=== PATIENT | female | born 1975 | race Two or more races ===

== ENCOUNTER 2017-03-02 19:13 | Emergency (ER) | payer SELFPAY ==
[2017-03-02] MEDS ORDERED: LIDOCAINE 5% (700 MG) TRANSDERMAL ADH..PATCH TP ONE (19:57)
--- NOTE | 2017-03-02 19:59 | ER Document Report ---
HPI - HPI Pain Level: 4 Notes: Patient is a 42-year-old female with no significant past medical history who presents the ED complaining of right shoulder pain 1 day without any known injury. Patient states that she is still able to use her arm and her shoulder, but does have discomfort in the anterior shoulder. Patient states that on occasion the pain feels like it radiates down her back. Patient denies any IV drug use. She denies any previous history of the shoulder aside from bursitis. No other concerns or complaints. Denies any headache, fever, head injury, neck pain, URI, sore throat, chest pain, palpitations, syncope, cough, shortness of breath, wheeze, dyspnea, abdominal pain, nausea/vomiting/diarrhea, numbness/tingling, saddle anesthesia, muscle paralysis/weakness, or rash. - ROS Notes: REVIEW OF SYSTEMS: CONSTITUTIONAL : Denies fever, chills, or sweats. Denies recent illness. EENT: Denies eye, ear, throat, or mouth pain or symptoms. Denies nasal or sinus congestion or discharge. Denies throat, tongue, or mouth swelling or difficulty swallowing. CARDIOVASCULAR: Denies chest pain. Denies palpitations or racing or irregular heart beat. RESPIRATORY: Denies cough, cold, or chest congestion. Denies shortness of breath, difficulty breathing, or wheezing. GASTROINTESTINAL: Denies abdominal pain or distention. Denies nausea, vomiting , or diarrhea. Denies blood in vomitus, stools, or per rectum. Denies black, tarry stools. Denies constipation. GENITOURINARY: Denies difficulty urinating, painful urination, burning, frequency, blood in urine, or discharge. MUSCULOSKELETAL: see hpi SKIN: Denies rash, lesions or sores. NEUROLOGICAL: Denies confusion or altered mental status. Denies passing out or loss of consciousness. Denies dizziness or lightheadedness. Denies headache. Denies weakness or paralysis or loss of use of either side. Denies problems with gait or speech. Denies sensory loss, numbness, or tingling. ALL OTHER SYSTEMS REVIEWED AND NEGATIVE. Dictation was performed using [employer] On[employer] recognition software - DERM Skin Color: Normal Past Medical History - Social History Smoking Status: Unknown if Ever Smoked Family History: Reviewed & Not Pertinent Patient has suicidal ideation: No Patient has homicidal ideation: No Renal/ Medical History: Denies: Hx Peritoneal Dialysis Vertical Provider Document - CONSTITUTIONAL Agree With Documented VS: Yes Notes: PHYSICAL EXAMINATION: GENERAL: Well-appearing, well-nourished and in no acute distress. A&Ox4 HEAD: Atraumatic, normocephalic. EYES: Pupils equal round and reactive to light, extraocular movements intact, sclera anicteric, conjunctiva are normal. ENT: EAC clear b/l. TM's intact b/l without erythema, fluid, or perforation. Nares patent and without discharge. oropharynx clear without exudates. No tonsilar hypertrophy or erythema. Moist mucous membranes. No sinus tenderness. NECK: Normal range of motion, supple without lymphadenopathy. No rigidity/ meningismus. No midline or paraspinal mm tenderness. LUNGS: Breath sounds clear to auscultation bilaterally and equal. No wheezes rales or rhonchi. HEART: Regular rate and rhythm without murmurs, rubs, gallops. Musculoskeletal: Rt shoulder: FROM to passive/active. Strength 5+/5. No RC deficit noted. + tenderness elicited with speed's test and palp to biceps tendon. No other shoulder tenderness or biceps tenderness. Field Agent strength intact. N/V intact distal. No erythema or warmth. Back: FROM. No step-offs, ecchymosis, abrasion, or deformity noted. Non- tender. Extremities: No cyanosis, clubbing, or edema b/l. Peripheral pulses 2+. Capillary refill less than 3 seconds. NEUROLOGICAL: Normal speech, normal gait. Normal sensory, motor exams PSYCH: Normal mood, normal affect. SKIN: Warm, Dry, normal turgor, no rashes or lesions noted. - INFECTION CONTROL TRAVEL OUTSIDE OF THE [place] IN LAST 30 DAYS: No - RESPIRATORY O2 Sat by Pulse Oximetry: 100 Course - Re-evaluation Re-evalutation: 03/02/17 20:09 Patient is an afebrile, well-hydrated, 42-year-old female who presents ED with right shoulder pain, I suspect possible biceps tendinitis based on H&P. Vitals are stable. PE is otherwise unremarkable for any neurovascular compromise, obvious tendon/ligament rupture, obvious fracture or dislocation. Patient had no bony tenderness on exam. No imaging warranted at this time based on H&P. I will send her home with a prescription for naproxen and a Lidoderm patch placed today. Conservative measures for symptoms otherwise. Recheck with your PCM this week. Consider consult with orthopedics and physical therapy for ongoing/ worsening symptoms. Return to the ED with any worsening/concerning symptoms otherwise as reviewed in discharge. Patient is in agreement. - Vital Signs Vital signs: Temp Pulse Resp BP Pulse Ox 98.1 F 89 16 150/96 H 100 03/02/17 19:14 03/02/17 19:14 03/02/17 19:14 03/02/17 19:14 03/02/17 19:14 Discharge - Discharge Clinical Impression: Biceps tendonitis Qualifiers: Laterality: right Qualified Code(s): M75.21 - Bicipital tendinitis, right shoulder Condition: Stable Disposition: HOME, SELF-CARE Instructions: Ice Packs ([facility]), Exercise Program for the Shoulder ([facility]), Tendonitis ([facility]), Warm Packs ([facility]) Additional Instructions: Rest, Ice, Compression, Elevation Tylenol/ibuprofen as needed Light stretches daily Strength exercises as able Moist heat and massage may help F/u with your PCP in 3-5 days for a recheck Consider consult(s) with Orthopedics/physical therapy for ongoing/worsening symptoms Return to the ED with any worsening symptoms and/or development of fever, headache, chest pain, palpitations, syncope, shortness of breath, trouble breathing, abdominal pain, n/v/d, muscle weakness/paralysis, numbness/tingling, swelling, redness, or other worsening symptoms that are concerning to you. Prescriptions: Naproxen 500 mg PO BID PRN #30 tablet PRN Reason: Forms: Elevated Blood Pressure Referrals: [facility] ([place]) [Provider Group] - Follow up as needed
[2017-03-02 21:32] VITALS: BP 157/93
== END 2017-03-02 21:16 | disposition home or self-care (01) ==
LOC: ER 19:13
DX: M75.21 Bicipital tendinitis, right shoulder (principal); M25.511 Pain in right shoulder
CPT/HCPCS: 99283

== ENCOUNTER 2017-04-05 13:03 | Observation (INO) | payer SELFPAY ==
[2017-04-05] MEDS ORDERED: ASPIRIN 325 MG TABLET PO ONE (13:30)
--- NOTE | 2017-04-05 13:32 | ER Document Report ---
ED Medical Screen (RME) - General Chief Complaint: Chest Pain > 30 Stated Complaint: CHEST PAIN LEFT ARM PAIN Time Seen by Provider: 04/05/17 13:30 Mode of Arrival: Ambulatory Information source: Patient TRAVEL OUTSIDE OF THE [place] IN LAST 30 DAYS: No - HPI Patient complains to provider of: cp Onset: This morning - pt started with SSCP approx 2-3 hours ago -- has GERD but this felt different than her usual GERD pain. Has not taken ASA today - Related Data Allergies/Adverse Reactions: No Known Allergies Allergy (Verified 04/05/17 13:08) Past Medical History Renal/ Medical History: Denies: Hx Peritoneal Dialysis Physical Exam - Vital signs Vitals: Temp Pulse Resp BP Pulse Ox 98.4 F 86 16 148/91 H 100 04/05/17 13:22 04/05/17 13:22 04/05/17 13:22 04/05/17 13:22 04/05/17 13:22 Course - Vital Signs Vital signs: Temp Pulse Resp BP Pulse Ox 98.4 F 86 16 148/91 H 100 04/05/17 13:22 04/05/17 13:22 04/05/17 13:22 04/05/17 13:22 04/05/17 13:22
[2017-04-05 14:21] LABS: ABSOLUTE BASOPHILS # (AUTO) 0.1 10^3/uL (0.0-0.2); ABSOLUTE EOSINOPHILS # (AUTO) 0.2 10^3/uL (0.0-0.6); ABSOLUTE LYMPHOCYTES (AUTO) 2.4 10^3/uL (0.5-4.7); ABSOLUTE MONOCYTES (AUTO) 1.3 10^3/uL (0.1-1.4); ABSOLUTE NEUT (AUTO) 7.8 10^3/uL (1.7-8.2); BASOPHILS % (AUTO) 0.5 % (0-2); EOSINOPHILS % (AUTO) 1.8 % (0-6); HEMOGLOBIN 11.5 g/dL (12.0-15.5); HGB HCT DIFFERENCE -1.5; LYMPHOCYTES % (AUTO) 20.6 % (13-45); MEAN CORPUSCULAR HEMOGLOBIN 24.4 pg (27.0-33.4); MEAN CORPUSCULAR HGB CONC 31.8 g/dL (32.0-36.0); MEAN CORPUSCULAR VOLUME 77 fl (80-97); RED BLOOD COUNT 4.69 10^6/uL (3.72-5.28); SEGMENTED NEUTROPHILS % (AUTO) 66.1 % (42-78); WHITE BLOOD COUNT 11.8 10^3/uL (4.0-10.5)
--- NOTE | 2017-04-05 14:33 | RADIOLOGY REPORT (SQ) ---
EXAM DESCRIPTION: CHEST PA/LAT COMPLETED DATE/TIME: 04/05/2017 2:25 pm REASON FOR STUDY: cp COMPARISON: None. EXAM PARAMETERS: NUMBER OF VIEWS: two views TECHNIQUE: Digital Frontal and Lateral radiographic views of the chest acquired. RADIATION DOSE: NA LIMITATIONS: none FINDINGS: LUNGS AND PLEURA: No opacities, masses or pneumothorax. No pleural effusion. MEDIASTINUM AND HILAR STRUCTURES: No masses or contour abnormalities. HEART AND VASCULAR STRUCTURES: Heart normal size. No evidence for failure. BONES: No acute findings. HARDWARE: Clips right upper quadrant post cholecystectomy. OTHER: No other significant finding. IMPRESSION: NO SIGNIFICANT RADIOGRAPHIC FINDING IN THE CHEST. TECHNICAL DOCUMENTATION: JOB ID: [id number] [employer]- All Rights Reserved
[2017-04-05 14:43] LABS: ALANINE AMINOTRANSFERASE 31 U/L (9-52); ALBUMIN 4.3 g/dL (3.5-5.0); ALKALINE PHOSPHATASE 117 U/L (38-126); ANION GAP 12 (5-19); ASPARTATE AMINO TRANSFERASE 19 U/L (14-36); BILIRUBIN,DIRECT 0.3 mg/dL (0.0-0.4); BILIRUBIN,TOTAL 0.3 mg/dL (0.2-1.3); BLOOD UREA NITROGEN 10 mg/dL (7-20); CALCIUM 9.4 mg/dL (8.4-10.2); CARBON DIOXIDE 27 mmol/L (22-30); CHLORIDE 102 mmol/L (98-107); CREATINE KINASE 135 U/L (30-135); CREATININE RESULT 0.88 mg/dL (0.52-1.25); GLUCOSE 78 mg/dL (75-110); POTASSIUM 4.3 mmol/L (3.6-5.0); SODIUM 140.5 mmol/L (137-145); TOTAL PROTEIN 7.7 g/dL (6.3-8.2)
[2017-04-05] MEDS ORDERED: NITROGLYCERIN 0.4 MG/TAB 25 TAB/BOTTLE SL PRN ×2 (14:54→20:43)
[2017-04-05 15:01] LABS: CREATINE KINASE MB 0.22 ng/mL (<4.55)
[2017-04-05 15:03] LABS: TROPONIN I < 0.012 ng/mL
--- NOTE | 2017-04-05 15:03 | ER Document Report ---
ED Cardiac - General Chief Complaint: Chest Pain > 30 Stated Complaint: CHEST PAIN LEFT ARM PAIN Time Seen by Provider: 04/05/17 14:10 Mode of Arrival: Ambulatory Information source: Patient, Relative - Patient's daughter is also in the room and helping give historical account TRAVEL OUTSIDE OF THE [place] IN LAST 30 DAYS: No - HPI Cardiac risk factors: Hypertension, + Family history - htn Exacerbated by: Denies Relieved by: Nothing Similar symptoms previously: No Recently seen / treated by doctor: No Notes: Is a 42-year-old -Al[place] female who presents the emergency department complaint of chest pain. She states the chest pain is pressure-like like someone sitting on her chest. She states it started this morning at 10 AM while sitting. She states that it radiates to her left back area. There is no aggravating or alleviating factors. She states she does have history of GERD and she usually relieves the discomfort from GERD with seltzer. She states that this pain feels different as it is located on the left side and is a heaviness. Patient was also diagnosed with hypertension in the past however she is noncompliant with the medication. She admits to smoking cigars however she denies cigarettes. She does drink vodka average of 3 times a week. Patient states approximately 3 years ago she had her gallbladder removed in a year ago she had an appendectomy. She also states 3 years ago she was seen for chest pain and did have a stress test which was negative. Patient states that her mother has a history of hypertension as well as her father. Patient denies any associated symptoms with her chest pain including nausea vomiting shortness of breath. She has not been out of the country recently. - Related Data Allergies/Adverse Reactions: No Known Allergies Allergy (Verified 04/05/17 13:08) Home Medications: Current Home Medications No Home Medications 04/05/17 [History] Past Medical History - General Information source: Patient - Social History Smoking Status: Current Every Day Smoker Chew tobacco use (# tins/day): No Frequency of alcohol use: Occasional Drug Abuse: None Family History: Reviewed & Not Pertinent Patient has suicidal ideation: No Patient has homicidal ideation: No Renal/ Medical History: Denies: Hx Peritoneal Dialysis Review of Systems - Review of Systems Constitutional: denies: No symptoms reported, See HPI, Chills, Diaphoresis, Fever, Malaise, Weakness, Other, Weight gain, Weight loss, Recent illness EENT: denies: No symptoms reported, See HPI, Eye pain, Eye discharge, Blurred vision, Tearing, Double vision, Ear pain, Ear discharge, Nose pain, Nose congestion, Nose discharge, Sinus pressure, Sinus discharge, Throat pain, Difficulty swallowing, Throat swelling, Mouth pain, Mouth swelling, Dental problem, Vertigo, Other Cardiovascular: See HPI. denies: Palpitations, Heart racing Respiratory: denies: No symptoms reported, See HPI, Cough, Hurts to breathe, Hemoptysis, Short of breath, Sputum, Stridor, Wheezing, Other Gastrointestinal: Vomiting - once yesterday Genitourinary: No symptoms reported Female Genitourinary: No symptoms reported Musculoskeletal: No symptoms reported Skin: No symptoms reported Hematologic/Lymphatic: No symptoms reported Neurological/Psychological: No symptoms reported -: Yes All other systems reviewed and negative Physical Exam - Vital signs Vitals: Temp Pulse Resp BP Pulse Ox 98.4 F 86 16 148/91 H 100 04/05/17 13:22 04/05/17 13:22 04/05/17 13:22 04/05/17 13:22 04/05/17 13:22 Interpretation: Hypertensive - Notes Notes: PHYSICAL EXAMINATION: GENERAL: Well-appearing, well-nourished and in no acute distress. HEAD: Atraumatic, normocephalic. EYES: Pupils equal round and reactive to light, extraocular movements intact, conjunctiva are normal. ENT: Nares patent, oropharynx clear without exudates. Moist mucous membranes. NECK: Normal range of motion, supple without lymphadenopathy LUNGS: Breath sounds clear to auscultation bilaterally and equal. No wheezes rales or rhonchi. HEART: Regular rate and rhythm without murmurs ABDOMEN: Soft, nontender, nondistended abdomen. No guarding, no rebound. No masses appreciated. Female : deferred Musculoskeletal: Normal range of motion, no pitting or edema. No cyanosis. NEUROLOGICAL: Cranial nerves grossly intact. Normal speech, normal gait. Normal sensory, motor exams PSYCH: Normal mood, normal affect. SKIN: Warm, Dry, normal turgor, no rashes or lesions noted. Course - Re-evaluation Re-evalutation: 04/05/17 17:42 Did talk to the [employer] who just sent the troponin that I had ordered earlier. - Vital Signs Vital signs: Temp Pulse Resp BP Pulse Ox 98.4 F 86 20 152/95 H 96 04/05/17 13:22 04/05/17 13:22 04/05/17 20:15 04/05/17 20:15 04/05/17 20:15 - Laboratory Result Diagrams: 04/05/17 13:40 04/05/17 13:40 Laboratory results interpreted by me: 04/05/17 13:40 WBC 11.8 H Hgb 11.5 L MCV 77 L MCH 24.4 L MCHC 31.8 L RDW 19.0 H - EKG Interpretation by Me EKG shows normal: Sinus rhythm Rate: Normal - 89 bpm Voltage: Consistant with LVH Additional EKG results interpreted by me: 04/05/17 17:43 EKG done 04/05/2017 at 1736 reveals normal sinus rhythm normal axis no acute ST elevation or depression. No acute abnormalities. No change when compared to previous EKG - Transfer of Care Notes: 04/05/17 18:56 Speak with the patient and her daughter. I reviewed the labs as well as both EKGs with them. We will placed in observation for further evaluation of her chest pain as well as blood pressure control. I did discuss with the patient that I feel that she needs to be placed in observation this time. She did state that she does not have insurance. I did tell her she could do this as an outpatient workup however she stated that she would feel more comfortable staying in the hospital and getting worked up sooner than later. Patient does not have a primary medical doctor she does not have a fire eater. Discharge - Discharge Clinical Impression: Chest pain in adult, Uncontrolled hypertension Condition: Stable Disposition: ADMITTED OBSERVATION Admitting Provider: Hospitalist - Dr. Bonilla Unit Admitted: Telemetry - [place]
[2017-04-05 20:40] LABS: URINE BARBITURATES SCREEN NEGATIVE; URINE METHADONE SCREEN NEGATIVE; URINE OPIATES LOW NEGATIVE; URINE PHENCYCLIDINE SCREEN NEGATIVE
[2017-04-05] MEDS ORDERED: LANSOPRAZOLE 15 MG TAB.RAP.DR PO ONE (20:43)
[2017-04-05] MEDS ORDERED: ONDANSETRON HCL INJ/PF 4 MG/2 ML SDV IV PRN (20:43)
[2017-04-05] MEDS ORDERED: MAG HYDROX/AL HYDROX/SIMETH SUSP 30 ML UDCUP PO ONE (20:52)
[2017-04-05] MEDS ORDERED: LIDOCAINE 2% VISCOUS SOLN 20 ML UDCUP PO ONE (20:52)
[2017-04-05] MEDS ORDERED: METOCLOPRAMIDE HCL ORAL SOLN 10 MG/10 ML UDCUP PO ONE (20:52)
--- NOTE | 2017-04-05 22:20 | PDOC H&P ---
History of Present Illness Admission Date/PCP: 04/05/17 20:36 no pcp History of Present Illness: KEVIN DAVIS is a 42 year old female with a PMH of HTN not currently on any medications who presents with complaints of chest pain. Patient reports that she began having chest pain at approximately 10 AM. She was sitting. She denies any exacerbating or alleviating factors. She reports that it radiated through to her back and into her left arm. She denied any diaphoresis, nausea, or vomiting. She did admit some shortness of breath and reported an odd smell at the time. She denies any cough or acute URI type illness. She is referred to the hospital service for evaluation of her chest pressure. Past Medical History Cardiac Medical History: Reports: Hypertension GI Medical History: Reports: Gastroesophageal Reflux Disease Past Surgical History Past Surgical History: Reports: Appendectomy, Cholecystectomy, Tubal Ligation Social History Smoking Status: Current Every Day Smoker Frequency of Alcohol Use: Social Hx Recreational Drug Use: No Hx Prescription Drug Abuse: No - Advance Directive Resuscitation Status: Full Code Surrogate healthcare decision maker:: Courtney Quintanilla, daughter Family History Family History: DM, Hypertension Parental Family History Reviewed: Yes Children Family History Reviewed: Yes Sibling(s) Family History Reviewed.: Yes Medication/Allergy Home Medications: No Home Medications 04/05/17 Allergies/Adverse Reactions: No Known Allergies Allergy (Verified 04/05/17 13:08) Review of Systems Constitutional: ABSENT: chills, fever(s), headache(s), weight gain, weight loss Eyes: ABSENT: visual disturbances Ears: ABSENT: hearing changes Cardiovascular: PRESENT: as per HPI, chest pain. ABSENT: dyspnea on exertion, edema, orthropnea, palpitations Respiratory: ABSENT: cough, dyspnea, hemoptysis, sputum Gastrointestinal: PRESENT: heartburn. ABSENT: abdominal pain, constipation, diarrhea, hematemesis, hematochezia, melena, nausea, vomiting Genitourinary: ABSENT: dysuria, hematuria Musculoskeletal: ABSENT: joint swelling Integumentary: ABSENT: rash, wounds Neurological: ABSENT: abnormal gait, abnormal speech, confusion, dizziness, focal weakness, syncope Psychiatric: ABSENT: anxiety, depression, homidical ideation, suicidal ideation Endocrine: ABSENT: cold intolerance, heat intolerance, polydipsia, polyuria Hematologic/Lymphatic: ABSENT: easy bleeding, easy bruising Physical Exam Vital Signs: Temp Pulse Resp BP Pulse Ox 98 F 86 20 150/99 H 100 04/05/17 21:38 04/05/17 21:38 04/05/17 21:38 04/05/17 21:38 04/05/17 21:38 General appearance: PRESENT: no acute distress, well-developed, well-nourished Head exam: PRESENT: atraumatic, normocephalic Eye exam: PRESENT: conjunctiva pink, EOMI, PERRLA. ABSENT: scleral icterus Ear exam: PRESENT: normal external ear exam Mouth exam: PRESENT: moist, tongue midline Neck exam: ABSENT: carotid bruit, JVD, lymphadenopathy, thyromegaly Respiratory exam: PRESENT: clear to auscultation jessica. ABSENT: rales, rhonchi, wheezes Cardiovascular exam: PRESENT: RRR. ABSENT: diastolic murmur, rubs, systolic murmur Pulses: PRESENT: normal dorsalis pedis pul Vascular exam: PRESENT: normal capillary refill GI/Abdominal exam: PRESENT: normal bowel sounds, soft. ABSENT: distended, guarding, mass, organolmegaly, rebound, tenderness Rectal exam: PRESENT: deferred Extremities exam: PRESENT: full ROM. ABSENT: calf tenderness, clubbing, pedal edema Neurological exam: PRESENT: alert, awake, oriented to person, oriented to place , oriented to time, oriented to situation, CN II-XII grossly intact. ABSENT: motor sensory deficit Psychiatric exam: PRESENT: appropriate affect, normal mood. ABSENT: homicidal ideation, suicidal ideation Skin exam: PRESENT: dry, intact, warm. ABSENT: cyanosis, rash Results Laboratory Results: 04/05/17 04/05/17 04/05/17 13:40 13:40 13:40 WBC 11.8 H Hgb 11.5 L Seg Neutrophils % 66.1 Creatinine 0.88 Troponin I < 0.012 Urine HCG, Qual Urine Opiates Screen Urine Cocaine Screen 04/05/17 04/05/17 04/05/17 16:26 16:26 17:30 WBC Hgb Seg Neutrophils % Creatinine Troponin I < 0.012 Urine HCG, Qual NEGATIVE Urine Opiates Screen NEGATIVE Urine Cocaine Screen NEGATIVE Impressions: Chest X-Ray 04/05/17 13:30 IMPRESSION: NO SIGNIFICANT RADIOGRAPHIC FINDING IN THE CHEST. Status: Imported from PACS Assessment & Plan - Diagnosis (1) Chest pain in adult Is this a current diagnosis for this admission?: Yes Plan: Place patient on telemetry observation. Monitor for arrhythmia or ST segment changes. Initiate patient on cozaar, Lipitor, oxygen, nitroglycerin, and aspirin. Serial cardiac enzymes every 6 hours. Testing lipid panel in the morning. Will obtain stress test tomorrow due to patient's risk factors and concerning history of chest pain. (2) Uncontrolled hypertension Is this a current diagnosis for this admission?: Yes Plan: Start patient on [id number] (3) Tobacco use disorder, mild, abuse Is this a current diagnosis for this admission?: Yes Plan: Patient is advised to stop using tobacco. Counseling lasted longer than 3 minutes. 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
[2017-04-05 22:47] LABS: CREATINE KINASE MB < 0.22 ng/mL (<4.55); TROPONIN I < 0.012 ng/mL
[2017-04-05] MEDS: METOPROLOL TARTRATE PF/INJ 5 MG/5 ML SDV IV PRN ×5 (23:31→23:50)
[2017-04-05] MEDS: LOSARTAN POTASSIUM 25 MG TABLET PO SCH (23:39)
[2017-04-05] MEDS: ATORVASTATIN CALCIUM 40 MG TABLET PO SCH (23:39)
[2017-04-05] MEDS ORDERED: METOPROLOL TARTRATE PF/INJ 5 MG/5 ML SDV IV PRN (23:49)
[2017-04-06] MEDS ORDERED: INFLUENZA ADLT QUAD (36MOS+) 2017-18 VAC 0.5 ML SYR IM PRN (00:45)
[2017-04-06 04:17] LABS: CHOLESTEROL 155.74 mg/dL (0-200); Direct HDL 51 mg/dL (>40); TRIGLYCERIDES 95 mg/dL (<150)
[2017-04-06 04:27] LABS: DIRECT LDL 83 mg/dL (<100)
[2017-04-06 04:33] LABS: CREATINE KINASE MB < 0.22 ng/mL (<4.55); TROPONIN I < 0.012 ng/mL
[2017-04-06] MEDS: LANSOPRAZOLE 30 MG TAB.RAP.DR PO SCH (05:27)
--- NOTE | 2017-04-06 09:54 | EKG REPORT ---
SEVERITY:- ABNORMAL ECG - SINUS RHYTHM CONSIDER LEFT VENTRICULAR HYPERTROPHY : Confirmed by: Juan Willis MD 06-Apr-2017 09:54:01
--- NOTE | 2017-04-06 09:54 | EKG REPORT ---
SEVERITY:- NORMAL ECG - SINUS RHYTHM : Confirmed by: Juan Willis MD 06-Apr-2017 09:53:49
[2017-04-06 10:15] LABS: CREATINE KINASE MB < 0.22 ng/mL (<4.55); TROPONIN I < 0.012 ng/mL
[2017-04-06] MEDS: ASPIRIN 325 MG TABLET, ENT COATED PO SCH (10:27)
[2017-04-06] MEDS: LOSARTAN POTASSIUM 25 MG TABLET PO SCH ×2 (10:27→22:29)
--- NOTE | 2017-04-06 18:30 | PDOC PROGRESS REPORT ---
Subjective Progress Note for:: 04/06/17 Subjective:: Patient denies any further chest pain. Troponins have been negative so far. She has been noncompliant with a blood pressure medication in the past and she has a family history of coronary artery disease. And she is a smoker. Patient states her chest pain was relieved in the ER with nitroglycerin. She denies any radiating nausea vomiting diaphoresis she denies any recent cough or congestion. Her past medical history includes hypertension, GERD, tubal ligation appendectomy cholecystectomy current smoker and some alcohol. Denies any illicit drug use. Reason For Visit: CHEST PAIN Physical Exam Vital Signs: Temp Pulse Resp BP Pulse Ox 98.6 F 81 18 133/81 H 100 04/06/17 12:01 04/06/17 14:00 04/06/17 12:01 04/06/17 12:01 04/06/17 12:01 Intake & Output 04/05/17 04/06/17 04/07/17 06:59 06:59 06:59 Intake Total 240 Output Total 300 Balance -60 Weight 70.7 kg General appearance: PRESENT: no acute distress, well-developed, well-nourished Head exam: PRESENT: atraumatic, normocephalic Eye exam: PRESENT: conjunctiva pink, EOMI, PERRLA. ABSENT: scleral icterus Ear exam: PRESENT: normal external ear exam Mouth exam: PRESENT: moist, tongue midline Neck exam: ABSENT: carotid bruit, JVD, lymphadenopathy, thyromegaly Respiratory exam: PRESENT: clear to auscultation jessica. ABSENT: rales, rhonchi, wheezes Cardiovascular exam: PRESENT: RRR. ABSENT: diastolic murmur, rubs, systolic murmur Pulses: PRESENT: normal dorsalis pedis pul Vascular exam: PRESENT: normal capillary refill GI/Abdominal exam: PRESENT: normal bowel sounds, soft. ABSENT: distended, guarding, mass, organolmegaly, rebound, tenderness Rectal exam: PRESENT: deferred Extremities exam: PRESENT: full ROM. ABSENT: calf tenderness, clubbing, pedal edema Neurological exam: PRESENT: alert, awake, oriented to person, oriented to place , oriented to time, oriented to situation, CN II-XII grossly intact. ABSENT: motor sensory deficit Psychiatric exam: PRESENT: appropriate affect, normal mood. ABSENT: homicidal ideation, suicidal ideation Skin exam: PRESENT: dry, intact, warm. ABSENT: cyanosis, rash Results Laboratory Results: 04/06/17 03:54 Triglycerides 95 Cholesterol 155.74 LDL Cholesterol Direct 83 VLDL Cholesterol 19.0 HDL Cholesterol 51 04/05/17 04/06/17 04/06/17 21:15 03:54 09:19 CK-MB (CK-2) < 0.22 < 0.22 < 0.22 Troponin I < 0.012 < 0.012 < 0.012 Impressions: Chest X-Ray 04/05/17 13:30 IMPRESSION: NO SIGNIFICANT RADIOGRAPHIC FINDING IN THE CHEST. Assessment & Plan - Diagnosis (1) Chest pain in adult Is this a current diagnosis for this admission?: Yes Plan: Patient was put in for a treadmill stress test for tomorrow. Troponins have been negative will consult Dr. Mcgowan if needed. Patient is on telemetry, we will initiate Cozaar, Lipitor, oxygen, nitroglycerin and aspirin. Lipid panel in the morning appeared normal. She does have some risk factors for coronary artery disease (2) Tobacco use disorder, mild, abuse Is this a current diagnosis for this admission?: Yes Plan: Patient was offered smoking cessation and she said she will is to quit. Patient denies smoking cigarettes she does smoke cigars (3) Uncontrolled hypertension Is this a current diagnosis for this admission?: Yes Plan: Patient was started on Cozaar continue to monitor frequent vital signs (4) GERD (gastroesophageal reflux disease) Qualifiers: Esophagitis presence: esophagitis presence not specified Qualified Code(s) : K21.9 - Gastro-esophageal reflux disease without esophagitis Is this a current diagnosis for this admission?: Yes Plan: Patient was placed on Protonix plan to continue that outpatient. She currently takes seltzer water for her GERD fairly frequently which this could be etiology of some of her chest discomfort - Plan Summary Plan Summary: Due to patient's risk factors despite negative cardiac enzymes will keep patient overnight and obtain a treadmill stress test in the morning due to her risk factors and concerning history of chest pain
[2017-04-06] MEDS: ATORVASTATIN CALCIUM 40 MG TABLET PO SCH (22:29)
[2017-04-07] MEDS: LANSOPRAZOLE 30 MG TAB.RAP.DR PO SCH (05:49)
[2017-04-07] MEDS: LOSARTAN POTASSIUM 25 MG TABLET PO SCH (12:07)
[2017-04-07] MEDS: ASPIRIN 325 MG TABLET, ENT COATED PO SCH (12:08)
[2017-04-07 16:30] VITALS: BP 132/74
--- NOTE | 2017-04-07 16:43 | PDOC DISCHARGE SUMMARY ---
General - Admit/Disc Date/PCP Admission Date/Primary Care Provider: 04/05/17 20:36 Discharge Date: 04/07/17 - Discharge Diagnosis (1) Chest pain in adult Summary: Patient denies any further chest pain. She was admitted late on Friday. Stress test was ordered for early this morning. Troponins were negative, vital signs blood pressure was stable, heart rate stable on telemetry no EKG changes. No further chest pain during her admission suspect this was due to GERD. Normal stress test so patient is able to be discharged home follow-up with oncology 2-4 weeks or as needed (2) Tobacco use disorder, mild, abuse Is this a current diagnosis for this admission?: Yes Summary: Encourage tobacco cessation recommend patient get [id number] nicotine patches offered to write a prescription she does not have any insurance (3) Uncontrolled hypertension Is this a current diagnosis for this admission?: Yes (4) GERD (gastroesophageal reflux disease) Is this a current diagnosis for this admission?: Yes Summary: Encourage patient to take Prilosec OTC or Pepcid or Zantac as needed - Additional Information Resuscitation Status: Full Code Discharge Diet: Cardiac Discharge Activity: Activity As Tolerated Home Medications: Aspirin [Ecotrin 325 mg EC Tablet] 325 mg PO DAILY tabec 04/07/17 Atorvastatin Calcium [Lipitor 40 mg Tablet] 40 mg PO QHS tablet 04/07/17 Lansoprazole [Prevacid 30 mg Odt Tablet] 30 mg PO Q6AM tab. 04/07/17 Losartan Potassium [Cozaar 25 mg Tablet] 25 mg PO Q12 tablet 04/07/17 History of Present Illness History of Present Illness: KEVIN DAVIS is a 42 year old female Hospital Course Hospital Course: 42-year-old female came in past medical history uncontrolled hypertension currently not on any medications due to financial reasons. Patient had acute sharp chest pain radiating down her back into her left arm. No diaphoresis nausea vomiting. No further chest pain was noted and observed during our hospitalization. EKG no EKG changes negative troponins and patient had a negative stress test by Dr. De lCastillo recommend following up with him outpatient 2-4 weeks patient is hemodynamically stable to return home. Physical Exam Vital Signs: Temp Pulse Resp BP Pulse Ox 98.4 F 96 16 132/74 H 100 04/07/17 16:00 04/07/17 16:00 04/07/17 16:00 04/07/17 16:00 04/07/17 16:00 Intake & Output 04/06/17 04/07/17 04/08/17 06:59 06:59 06:59 Intake Total 240 1883 Output Total 300 Balance -60 1883 Weight 70.7 kg 70.7 kg General appearance: PRESENT: no acute distress, well-developed, well-nourished Head exam: PRESENT: atraumatic, normocephalic Eye exam: PRESENT: conjunctiva pink, EOMI, PERRLA. ABSENT: scleral icterus Ear exam: PRESENT: normal external ear exam Mouth exam: PRESENT: moist, tongue midline Neck exam: ABSENT: carotid bruit, JVD, lymphadenopathy, thyromegaly Respiratory exam: PRESENT: clear to auscultation jessica. ABSENT: rales, rhonchi, wheezes Cardiovascular exam: PRESENT: RRR. ABSENT: diastolic murmur, rubs, systolic murmur Pulses: PRESENT: normal dorsalis pedis pul Vascular exam: PRESENT: normal capillary refill GI/Abdominal exam: PRESENT: normal bowel sounds, soft. ABSENT: distended, guarding, mass, organolmegaly, rebound, tenderness Rectal exam: PRESENT: deferred Extremities exam: PRESENT: full ROM. ABSENT: calf tenderness, clubbing, pedal edema Neurological exam: PRESENT: alert, awake, oriented to person, oriented to place , oriented to time, oriented to situation, CN II-XII grossly intact. ABSENT: motor sensory deficit Psychiatric exam: PRESENT: appropriate affect, normal mood. ABSENT: homicidal ideation, suicidal ideation Skin exam: PRESENT: dry, intact, warm. ABSENT: cyanosis, rash Results Laboratory Results: 04/05/17 04/06/17 04/06/17 21:15 03:54 09:19 CK-MB (CK-2) < 0.22 < 0.22 < 0.22 Troponin I < 0.012 < 0.012 < 0.012 Impressions: Chest X-Ray 04/05/17 13:30 IMPRESSION: NO SIGNIFICANT RADIOGRAPHIC FINDING IN THE CHEST. Plan Discharge Plan: Discharge home Time Spent: Less than 30 Minutes
--- NOTE | 2017-04-12 15:54 | DRAGON STRESS TEST REPORT ---
Exercise EKG treadmill Cardiolite stress test using SPECT. Data procedure: 04/07/2017. Ordering Physician: Dr. Prince. Patient Status: In Patient Indication:: Chest pain. Coronary risk factors:. Age, hypertension, and hypercholesterolemia. Significant physical findings prior to stress testing show a blood pressure of 124/8493, and a heart rate of 93 beats per minute. Auscultation of the heart shows normal S1 and S2. No S3 or S4 gallops. Systolic murmur in the left sternal border and apex. Lungs are clear to auscultation and percussion. Resting 12-lead EKG:. Procedure: The patient was excised on a standard Trip protocol. . The patient walked a total of 7 minutes and 06 seconds on this protocol and reached a peak heart rate of 169 beats per minute, which is 96% of maximum predicted heart rate for age. This is at a workload of 10.10 METS. The test was stopped because of achievement of target heart rate. The patient described no symptoms of chest pain/discomfort. Exercise EKG's show: There is no EKG evidence of exercise-induced myocardial ischemia Arrhythmias seen: There were isolated PVCs, and the patient complained of fluttering, but no hemodynamic changes. The blood pressure response was was normal at peak exercise the blood pressure was 179/76 millimeters of Hg. The double product was K. Summary of findings and interpretation: 1. No chest pain or chest discomfort symptoms reproduced. 2. No] EKG evidence of ischemia in the form of ST segment depression. 3. Normal blood pressure response. 4. No significant arrhythmias seen. There were isolated PVCs, and the patient complained of fluttering, but there is no hemodynamic compromise. 5. Good exercise tolerance, good aerobic capacity. Diagnostic treadmill stress test negative for ischemia by EKG criteria. Recommendations: Correlate with nuclear Cardiolite images. Nuclear data: At rest the patient was given 10.8 millicuries of technetium 99 sestamibi, and as per protocol rest none gated SPECT images were obtained. The patient was exercised on a treadmill [see exercise physiology]. One minute prior to termination of exercise, 31.5 millicuries of technetium and there sestamibi was injected intravenously. As per protocol stress gated images were obtained. Impression: Review of images show that all segments of the myocardium had normal perfusion at rest, and normal perfusion post exercise. All segments of the myocardium had normal motion, contraction, and thickening by gated study. T. I D. ratio was normal at 0.69. The computer read rest and stress left ventricular ejection fractions were 63 %, and 68 % respectively. Conclusions: 1. No clinical symptoms of exercise-induced myocardial ischemia at a peak heart rate of 169 beats per minute, patient having achieved 96 % of maximum predicted heart rate for age, at a workload of 10.10 METS. 2. No EKG evidence of exercise-induced myocardial ischemia. 3. No significant arrhythmias seen. 4.No scintigraphic evidence of exercise-induced myocardial ischemia. 5. No scintigraphic evidence of myocardial infarction/scar. Recommendations Aggressive coronary risk factor modificnd treatment of underlying comorbidities. MTDD
== END 2017-04-07 18:15 | disposition home or self-care (01) ==
LOC: ER 13:03 → EH 20:36 → 4N 22:54
PROVIDERS: ADMIT Family Medicine; ATTEND Family Medicine
PROC: HZ31ZZZ Individual Counseling for Substance Abuse Treatment, Behavioral (ICD-10-PCS; principal; 2017-04-05)
DX: R07.9 Chest pain, unspecified (principal); I10 Essential (primary) hypertension; K21.9 Gastro-esophageal reflux disease without esophagitis; Z79.82 Long term (current) use of aspirin; Z91.14 Patient's other noncompliance with medication regimen; F17.290 Nicotine dependence, other tobacco product, uncomplicated; Z59.9 Problem related to housing and economic circumstances, unspecified; Z90.49 Acquired absence of other specified parts of digestive tract; Z82.49 Family history of ischemic heart disease and other diseases of the circulatory system
CPT/HCPCS: 93005; 99285; 36415 ×2; 82553 ×2; 82550; 85025; 81025; 80053; 84484 ×2; 80307; 80061; 93017; 71020; 78452; 93010; 99406; A9500; J3490 ×4; Q9969

== ENCOUNTER 2017-08-19 08:11 | Emergency (ER) | payer SELFPAY ==
[2017-08-19 08:46] LABS: APPEARANCE,URINE CLEAR; BILIRUBIN,URINE NEGATIVE (NEGATIVE); COLOR,URINE STRAW; GLUCOSE, URINE NEGATIVE (NEGATIVE); KETONES,URINE NEGATIVE (NEGATIVE); LEUKOCYTE ESTERASE,URINE NEGATIVE (NEGATIVE); NITRITE,URINE NEGATIVE (NEGATIVE); PROTEIN,URINE NEGATIVE (NEGATIVE); URINE SPECIFIC GRAVITY 1.003; UROBILINOGEN,URINE NEGATIVE mg/dL (<2.0)
[2017-08-19] MEDS ORDERED: MAG HYDROX/AL HYDROX/SIMETH SUSP 30 ML UDCUP PO ONE (09:22)
[2017-08-19] MEDS ORDERED: DIPHENHYDRAMINE HCL 25 MG/10 ML UDC PO ONE (09:22)
[2017-08-19] MEDS ORDERED: LIDOCAINE 2% VISCOUS SOLN 20 ML UDCUP PO ONE (09:22)
[2017-08-19 09:24] LABS: ALANINE AMINOTRANSFERASE 25 U/L (9-52); ALBUMIN 4.5 g/dL (3.5-5.0); ALKALINE PHOSPHATASE 105 U/L (38-126); ANION GAP 12 (5-19); ASPARTATE AMINO TRANSFERASE 25 U/L (14-36); BILIRUBIN,DIRECT 0.3 mg/dL (0.0-0.4); BILIRUBIN,TOTAL 0.3 mg/dL (0.2-1.3); BLOOD UREA NITROGEN 8 mg/dL (7-20); CALCIUM 9.7 mg/dL (8.4-10.2); CARBON DIOXIDE 25 mmol/L (22-30); CHLORIDE 106 mmol/L (98-107); CREATINE KINASE 91 U/L (30-135); GLUCOSE 97 mg/dL (75-110); POTASSIUM 4.1 mmol/L (3.6-5.0); SODIUM 142.9 mmol/L (137-145); TOTAL PROTEIN 8.1 g/dL (6.3-8.2)
--- NOTE | 2017-08-19 09:25 | EKG REPORT ---
SEVERITY:- ABNORMAL ECG - SINUS RHYTHM CONSIDER LEFT VENTRICULAR HYPERTROPHY : Confirmed by: Percy Butcher 19-Aug-2017 09:24:34
[2017-08-19 09:35] LABS: CREATINE KINASE MB 0.24 ng/mL (<4.55)
[2017-08-19 09:36] LABS: TROPONIN I < 0.012 ng/mL
[2017-08-19 10:03] LABS: ABSOLUTE EOSINOPHILS # (AUTO) 0.2 10^3/uL (0.0-0.6); ABSOLUTE LYMPHOCYTES (AUTO) 1.8 10^3/uL (0.5-4.7); ABSOLUTE MONOCYTES (AUTO) 0.7 10^3/uL (0.1-1.4); ABSOLUTE NEUT (AUTO) 9.4 10^3/uL (1.7-8.2); BASOPHILS % (AUTO) 0.3 % (0-2); EOSINOPHILS % (AUTO) 1.9 % (0-6); HEMOGLOBIN 11.8 g/dL (12.0-15.5); MEAN CORPUSCULAR HEMOGLOBIN 24.1 pg (27.0-33.4); MEAN CORPUSCULAR HGB CONC 31.1 g/dL (32.0-36.0); MEAN CORPUSCULAR VOLUME 78 fl (80-97); MONOCYTES % (AUTO) 5.8 % (3-13); PLATELET COUNT 406 10^3/uL (150-450); RED CELL DISTRIBUTION WIDTH 20.7 % (11.5-14.0); TOTAL CELLS COUNTED % (AUTO) 100 %; WHITE BLOOD COUNT 12.2 10^3/uL (4.0-10.5)
--- NOTE | 2017-08-19 10:45 | RADIOLOGY REPORT (SQ) ---
EXAM DESCRIPTION: CTA CHEST COMPLETED DATE/TIME: 08/19/2017 10:16 am REASON FOR STUDY: left sided cp, sob COMPARISON: None. TECHNIQUE: CT scan of the chest performed using helical scanning technique with dynamic intravenous contrast injection. Images reviewed with lung, soft tissue and bone windows. Reconstructed coronal and sagittal MPR images reviewed. Additional 3 dimensional post-processing performed to develop Maximal Intensity Projection images (HI P). All images stored on PACS. All CT scanners at this facility use dose modulation, iterative reconstruction, and/or weight based d osing when appropriate to reduce radiation dose to as low as reasonably achievable (ALARA). [facility]: Dose Right [facility]: CareDose [facility]: Dose Right [facility]: Teradose 4D [facility]: LightPole CONTRAST TYPE AND DOSE: contrast/concentration: Isovue 370.00 mg/ml; Total Contrast Delivered: 67.0 ml; Total Saline Delivered: 85.2 ml Contrast bolus optimized for the pulmonary arteries. Not diagnostic for the aorta. RENAL FUNCTION: Creatinine 0.62 RADIATION DOSE: CT Rad equipment meets quality standard of care and radiation dose reduction techniq ues were employed. CTDIvol: 14.3 - 16.5 mGy. DLP: 485 mGy-cm. . LIMITATIONS: None. FINDINGS: LUNGS AND PLEURA: No masses, infiltrates, pneumothorax. No pleural effusions, calcificati ons. Benign 3 mm nodule along the inferior aspect of the major fissure axial image 69 of doubtful cl inical significance AORTA AND GREAT VESSELS: No aneurysm. Contrast bolus not optimized for the aorta. HEART: No pericardial effusion. No significant coronary artery calcifications. PULMONARY ARTERIES: No emboli visualized in the main pulmonary arteries or the segmental branches. HILAR AND MEDIASTINAL STRUCTURES: No identified masses or abnormal nodes. HARDWARE: None in the chest. UPPER ABDOMEN: Post cholecystectomy THYROID AND OTHER SOFT TISSUES: No masses. No adenopathy. BONES: No acute or significant finding. 3D MIPS: Confirm above findings. OTHER: No other significant finding. IMPRESSION: NORMAL CTA OF THE CHEST. NO PULMONARY EMBOLI. COMMENT: Quality ID # [id number]: Final reports with documentation of one or more dose reduction techniques (e.g., Automated exposure control, adjustment of the mA and/or kV according to patient size, use of iterative reconstruction technique) TECHNICAL DOCUMENTATION: JOB ID: [id number]- All Rights Reserved Reading location - IP/workstation name: [email or web address]
[2017-08-19] MEDS ORDERED: ALBUTEROL SULFATE 0.083% NEB 2.5 MG/3 ML AMPUL NEB ONE (11:30)
--- NOTE | 2017-08-19 11:41 | ER Document Report ---
ED Cardiac - General Chief Complaint: Chest Pain Stated Complaint: ABDOMINAL PAIN Time Seen by Provider: 08/19/17 08:24 Mode of Arrival: Ambulatory Information source: Patient Notes: Patient is a 42-year-old female presents to the ER today for chest pain that began last night that she thought was acid reflux until this morning when it continued. Patient states the chest pain has been intermittent and is in the center of her chest, not radiating anywhere. She does state that it gives her shortness of breath with walking which is abnormal for her she does not have asthma or COPD, she does smoke 1 cigar a day. She was here in April 2017 for the same symptoms, was admitted, received a stress test that was normal. She does take Nexium daily. She denies any history of cardiac disease. She denies any history of blood clots, recent travel, control. TRAVEL OUTSIDE OF THE [place] IN LAST 30 DAYS: No - Related Data Allergies/Adverse Reactions: No Known Allergies Allergy (Verified 04/05/17 13:08) Home Medications: lisinopril. statin - pt unsure which. additional bp medications -- pt unsure which Past Medical History - General Information source: Patient - Social History Smoking Status: Current Every Day Smoker Frequency of alcohol use: Occasional Drug Abuse: None Family History: DM, Hypertension Patient has suicidal ideation: No Patient has homicidal ideation: No - Past Medical History Cardiac Medical History: Reports: Hx Hypercholesterolemia, Hx Hypertension Renal/ Medical History: Denies: Hx Peritoneal Dialysis GI Medical History: Reports: Hx Gastroesophageal Reflux Disease Past Surgical History: Reports: Hx Appendectomy, Hx Cholecystectomy, Hx Tubal Ligation Review of Systems - Review of Systems Constitutional: No symptoms reported EENT: No symptoms reported Cardiovascular: See HPI Respiratory: See HPI Gastrointestinal: No symptoms reported Genitourinary: No symptoms reported Female Genitourinary: No symptoms reported Musculoskeletal: No symptoms reported Skin: No symptoms reported Hematologic/Lymphatic: No symptoms reported Neurological/Psychological: No symptoms reported Physical Exam - Vital signs Vitals: Temp Pulse Resp BP Pulse Ox 97.7 F 90 18 165/94 H 98 08/19/17 08:16 08/19/17 08:16 08/19/17 08:16 08/19/17 08:16 08/19/17 08:16 - Notes Notes: PHYSICAL EXAMINATION: GENERAL: Well-appearing and in no acute distress. HEAD: Atraumatic, normocephalic. EYES: Pupils equal round and reactive to light, extraocular movements intact, sclera anicteric, conjunctiva are normal. ENT: ear canals without erythema or foreign body, TMs pearly lemus with good bony landmarks, nares patent, oropharynx clear without exudates. Moist mucous membranes. NECK: Normal range of motion, supple without lymphadenopathy LUNGS: CTAB and equal. No wheezes rales or rhonchi. HEART: Chest nontender to palpation, regular rate and rhythm without murmurs ABDOMEN: Soft, no tenderness. No guarding, no rebound BACK: no vertebral tenderness, normal ROM GI/: no CVA tenderness EXTREMITIES: Normal range of motion, no pitting edema. No cyanosis. NEUROLOGICAL: Cranial nerves grossly intact. Normal sensory/motor exams. PSYCH: Normal mood, normal affect. SKIN: Warm, Dry, normal turgor, no rashes or lesions noted Course - Re-evaluation Re-evalutation: 08/19/17 12:00 Cardiac enzymes are normal today EKG reveals normal sinus rhythm without evidence of ischemia or abnormality, CTA negative for any pulmonary emboli or abnormality. Patient is afebrile with normal vital signs, not requiring oxygen here in the emergency department. Lungs are clear to auscultation. Patient felt better after breathing treatment, I will send her home with an inhaler and something for her cough. I will also treat her for GERD as the GI cocktail completely relieved her chest pain. - Vital Signs Vital signs: Temp Pulse Resp BP Pulse Ox 97.7 F 90 26 H 148/97 H 100 08/19/17 08:16 08/19/17 08:16 08/19/17 10:01 08/19/17 10:01 08/19/17 10:01 - Laboratory Result Diagrams: 08/19/17 09:32 08/19/17 08:53 Laboratory results interpreted by me: 08/19/17 09:32 WBC 12.2 H Hgb 11.8 L MCV 78 L MCH 24.1 L MCHC 31.1 L RDW 20.7 H Absolute Neutrophils 9.4 H Discharge - Discharge Clinical Impression: Chest pain in adult, Cough GERD (gastroesophageal reflux disease) Qualifiers: Esophagitis presence: esophagitis presence not specified Qualified Code(s): K21.9 - Gastro-esophageal reflux disease without esophagitis Condition: Stable Disposition: HOME, SELF-CARE Additional Instructions: Return immediately for any new or worsening symptoms. Follow up with primary care provider, call tomorrow to make followup appointment. Prescriptions: Albuterol Sulfate [Ventolin Hfa] 1 - 2 puff IH Q4 PRN #1 hfa.aer.ad PRN Reason: Guaifenesin/D-Methorphan Hb [Robitussin-Dm Syrup 10 Ml Udcup] 10 ml PO Q4 PRN # 120 ml PRN Reason: Sucralfate [Carafate 1 gm Tablet] 1 gm PO ACHS #40 tablet Referrals: SHAKA PRUETT FNP [Primary Care Provider] - Follow up as needed
[2017-08-19 12:39] VITALS: BP 119/82
== END 2017-08-19 12:42 | disposition home or self-care (01) ==
LOC: ER 08:11
DX: K21.9 Gastro-esophageal reflux disease without esophagitis (principal); R07.9 Chest pain, unspecified; R05 Cough; R06.02 Shortness of breath; R10.9 Unspecified abdominal pain; F17.200 Nicotine dependence, unspecified, uncomplicated; I10 Essential (primary) hypertension
CPT/HCPCS: 93005; 94640; 99285; 36415; 82553; 82550; 83690; 85025; 81025; 80053; 81001; 84484; 71275; 93010; J3490 ×2

== ENCOUNTER 2018-07-14 08:27 | Emergency (ER) | payer SELFPAY ==
[2018-07-14] MEDS ORDERED: ASPIRIN 81 MG TABLET, CHEWABLE PO ONE (09:29)
[2018-07-14] MEDS ORDERED: MAG HYDROX/AL HYDROX/SIMETH SUSP 30 ML UDCUP PO ONE (09:30)
[2018-07-14] MEDS ORDERED: LIDOCAINE 2% VISCOUS SOLN 20 ML UDCUP PO ONE (09:30)
[2018-07-14] MEDS ORDERED: METOCLOPRAMIDE HCL ORAL SOLN 10 MG/10 ML UDCUP PO ONE (09:30)
--- NOTE | 2018-07-14 09:32 | ER Document Report ---
ED Medical Screen (RME) - General Chief Complaint: Chest Pain Stated Complaint: CHEST PAIN Time Seen by Provider: 07/14/18 09:24 Primary Care Provider: SHAKA PRUETT FNP [Primary Care Provider] - Follow up as needed Mode of Arrival: Ambulatory Information source: Patient, [facility] Records Notes: 43-year-old female with hypertension, hyperlipidemia, GERD presents with complaint of chest pain that started 1 day prior to arrival. Patient states pain is pressure-like, intermittent and not exacerbated by anything. Patient states she does have relief of some pressure when she stretches her arms over her head. Patient also reports shortness of breath with walking that occurred yesterday. Patient has had prior similar symptoms. She reports a stress test that was performed within the last year which she reports to be normal. Patient does smoke cigars, drinks socially but denies illicit drug use. I have greeted and performed a rapid initial assessment of this patient. A comprehensive ED assessment and evaluation of the patient, analysis of test results and completion of medical decision making process we will be contacted by additional ED providers. PHYSICAL EXAMINATION: Vital signs reviewed-hypertensive GENERAL: Well-appearing, well-nourished and in no acute distress. LUNGS: No respiratory distress Musculoskeletal: Normal range of motion NEUROLOGICAL: Normal speech, normal gait. PSYCH: Normal mood, normal affect. SKIN: Warm, Dry, normal turgor, no rashes or lesions noted. TRAVEL OUTSIDE OF THE [place] IN LAST 30 DAYS: No - HPI Onset: Yesterday Onset/Duration: Sudden, Intermittent Quality of pain: Pressure Severity: Mild Associated Symptoms: Chest pain, Shortness of breath Exacerbated by: Denies Relieved by: Other - Stretching her arms above her head Similar symptoms previously: Yes Recently seen / treated by doctor: No - Related Data Smoking: Cigar Frequency of alcohol use: Social Drug Abuse: None Allergies/Adverse Reactions: No Known Allergies Allergy (Verified 07/14/18 08:28) Past Medical History - Past Medical History Cardiac Medical History: Reports: Hx Hypercholesterolemia, Hx Hypertension Renal/ Medical History: Denies: Hx Peritoneal Dialysis GI Medical History: Reports: Hx Gastroesophageal Reflux Disease Past Surgical History: Reports: Hx Appendectomy, Hx Cholecystectomy, Hx Tubal Ligation - Immunizations History of Influenza Vaccine for 02/2017 - 07/2017 Season: No Physical Exam - Vital signs Vitals: Temp Pulse Resp BP Pulse Ox 97.3 F 87 16 158/95 H 100 07/14/18 08:51 07/14/18 08:51 07/14/18 08:51 07/14/18 08:51 07/14/18 08:51 Course - Vital Signs Vital signs: Temp Pulse Resp BP Pulse Ox 97.3 F 87 16 158/95 H 100 07/14/18 08:51 07/14/18 08:51 07/14/18 08:51 07/14/18 08:51 07/14/18 08:51 Doctor's Discharge - Discharge Referrals: SHAKA PRUETT FNP [Primary Care Provider] - Follow up as needed
[2018-07-14 10:03] LABS: ABSOLUTE BASOPHILS # (AUTO) 0.1 10^3/uL (0.0-0.2); ABSOLUTE EOSINOPHILS # (AUTO) 0.1 10^3/uL (0.0-0.6); ABSOLUTE LYMPHOCYTES (AUTO) 1.5 10^3/uL (0.5-4.7); ABSOLUTE MONOCYTES (AUTO) 0.8 10^3/uL (0.1-1.4); ABSOLUTE NEUT (AUTO) 6.3 10^3/uL (1.7-8.2); EOSINOPHILS % (AUTO) 1.7 % (0-6); HEMATOCRIT 33.2 % (36.0-47.0); MEAN CORPUSCULAR HEMOGLOBIN 24.8 pg (27.0-33.4); MEAN CORPUSCULAR HGB CONC 33.2 g/dL (32.0-36.0); MEAN CORPUSCULAR VOLUME 75 fl (80-97); MONOCYTES % (AUTO) 9.1 % (3-13); PLATELET COUNT 364 10^3/uL (150-450); RED BLOOD COUNT 4.45 10^6/uL (3.72-5.28); RED CELL DISTRIBUTION WIDTH 18.9 % (11.5-14.0); SEGMENTED NEUTROPHILS % (AUTO) 71.2 % (42-78); TOTAL CELLS COUNTED % (AUTO) 100 %; WHITE BLOOD COUNT 8.8 10^3/uL (4.0-10.5)
--- NOTE | 2018-07-14 10:10 | RADIOLOGY REPORT (SQ) ---
EXAM DESCRIPTION: CHEST 2 VIEWS COMPLETED DATE/TIME: 07/14/2018 10:00 am REASON FOR STUDY: chest pain COMPARISON: 04/05/2017 EXAM PARAMETERS: NUMBER OF VIEWS: two views TECHNIQUE: Digital Frontal and Lateral radiographic views of the chest acquired. RADIATION DOSE: NA LIMITATIONS: none FINDINGS: LUNGS AND PLEURA: No opacities, masses or pneumothorax. No pleural effusion. MEDIASTINUM AND HILAR STRUCTURES: No masses or contour abnormalities. HEART AND VASCULAR STRUCTURES: Heart normal size. No evidence for failure. BONES: No acute findings. HARDWARE: None in the chest. OTHER: Prior cholecystectomy. IMPRESSION: 1. No significant interval change since the prior examination dated 04/05/2017. No acut e findings. TECHNICAL DOCUMENTATION: JOB ID: [id number] [employer]- All Rights Reserved Reading location - IP/workstation name: [email or web address]
[2018-07-14 10:28] LABS: ALANINE AMINOTRANSFERASE 8 U/L (9-52); ALBUMIN 4.4 g/dL (3.5-5.0); ALKALINE PHOSPHATASE 108 U/L (38-126); ANION GAP 7 (5-19); ASPARTATE AMINO TRANSFERASE 35 U/L (14-36); BILIRUBIN,DIRECT 0.3 mg/dL (0.0-0.4); BILIRUBIN,TOTAL 0.4 mg/dL (0.2-1.3); BLOOD UREA NITROGEN 11 mg/dL (7-20); CALCIUM 9.2 mg/dL (8.4-10.2); CARBON DIOXIDE 27 mmol/L (22-30); CHLORIDE 104 mmol/L (98-107); CREATINE KINASE 99 U/L (30-135); GLUCOSE 91 mg/dL (75-110); POTASSIUM 4.6 mmol/L (3.6-5.0); SODIUM 138.1 mmol/L (137-145); TOTAL PROTEIN 8.1 g/dL (6.3-8.2)
[2018-07-14] MEDS ORDERED: LOSARTAN POTASSIUM 25 MG TABLET PO ONE (10:31)
--- NOTE | 2018-07-14 10:32 | ER Document Report ---
ED General - General Chief Complaint: Chest Pain Stated Complaint: CHEST PAIN Time Seen by Provider: 07/14/18 09:24 Primary Care Provider: NIYA HOYT MD [ACTIVE STAFF] - Follow up as needed ORLANDO CAMERON MD [ACTIVE STAFF] - Follow up as needed SHAKA PRUETT FNP [NURSE PRACTITIONER] - Follow up as needed Mode of Arrival: Ambulatory Information source: Patient Notes: Patient presents complaining of left-sided chest pain that radiates to the left shoulder that started yesterday. Patient does report that she has had some exertional shortness of breath but only with walking. Patient states that she typically gets these chest pain symptoms every month that seem to correspond with her menstrual cycle. Patient states that she developed right-sided abdominal pain that is been sharp today which prompted her visit here. Patient also reports frontal headache pain that developed while here in the ER. Patient states she had nausea yesterday although denies any this time. Patient states that her chest pain is improved if she stretches with her arms above her head. Patient denies any urinary symptoms. Last bowel movement was yesterday. TRAVEL OUTSIDE OF THE [place] IN LAST 30 DAYS: No - HPI Onset: Other - Abdominal pain this morning, chest pain yesterday Onset/Duration: Persistent Quality of pain: Achy Pain Level: 3 Associated symptoms: Chest pain, Headache, Shortness of breath, Other - Right- sided abdominal pain. 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 denies: Fever EENT: No symptoms reported Cardiovascular: Chest pain. denies: Syncope, Dizziness Respiratory: Short of breath Gastrointestinal: Abdominal pain, Nausea - Yesterday, now resolved. denies: Abdomen distended, Diarrhea, Vomiting Genitourinary: No symptoms reported. denies: Dysuria, Flank pain Female Genitourinary: No symptoms reported Musculoskeletal: No symptoms reported. denies: Back pain Skin: No symptoms reported Hematologic/Lymphatic: No symptoms reported Neurological/Psychological: No symptoms reported Physical Exam - Vital signs Vitals: Temp Pulse Resp BP Pulse Ox 97.3 F 87 16 158/95 H 100 07/14/18 08:51 07/14/18 08:51 07/14/18 08:51 07/14/18 08:51 07/14/18 08:51 - General General appearance: Appears well, Alert In distress: None - HEENT Head: Normocephalic, Atraumatic Eyes: Normal Conjunctiva: Normal Nasal: Normal Mouth/Lips: Normal Mucous membranes: Normal Neck: Normal, Supple. No: Lymphadenopathy - Respiratory Respiratory status: No respiratory distress Chest status: Tender Breath sounds: Normal Chest palpation: Normal - Cardiovascular Rhythm: Regular Heart sounds: S1 appreciated, S2 appreciated Murmur: No - Abdominal Inspection: Normal Distension: No distension Bowel sounds: Normal Tenderness: Tender - right lateral side pain Organomegaly: No organomegaly - Back Back: Normal, Nontender. No: CVA tenderness - Extremities General upper extremity: Normal inspection, Normal ROM General lower extremity: Normal inspection, Nontender, Normal ROM. No: Edema - Neurological Neuro grossly intact: Yes Cognition: Normal Jerry Coma Scale Eye Opening: Spontaneous [place] Coma Scale Verbal: Oriented [place] Coma Scale Motor: Obeys Commands Jerry Coma Scale Total: 15 - Psychological Associated symptoms: Normal affect, Normal mood - Skin Skin Temperature: Warm Skin Moisture: Dry Skin Color: Normal Course - Re-evaluation Re-evalutation: 07/14/18 16:01 Patient denies any chest pain at this time. Patient denies any significant abdominal tenderness at this time. Discussed results of patient's diagnostic test with her. No concern for any bowel obstruction or obstructive uropathy. Patient with negative troponin test after being cycled x2. Patient does report having a negative stress test last year. Patient with a heart score of 2 for age and risk factors. No concern for PE. The patient has atypical chest pain as the patient's chest pain is not suggestive of pulmonary embolus, cardiac ischemia, aortic dissection, or other serious etiology. Given the extremely low risk of these diagnoses for the test in evaluation for these possibilities does not appear to be indicated at this time. Patient presents with abdominal pain without signs of peritonitis or other life-threatening or serious etiology. Patient appears stable for discharge and has been instructed to return immediately if the symptoms worsen in any way for reevaluation. The patient has been instructed to return if the symptoms worsen or change in any way. - Vital Signs Vital signs: Temp Pulse Resp BP Pulse Ox 98.1 F 85 16 138/87 H 100 07/14/18 16:41 07/14/18 16:41 07/14/18 16:41 07/14/18 16:41 07/14/18 16:41 - Laboratory Result Diagrams: 07/14/18 09:46 07/14/18 09:46 Laboratory results interpreted by me: 07/14/18 07/14/18 09:46 09:46 Hgb 11.0 L Hct 33.2 L MCV 75 L MCH 24.8 L RDW 18.9 H ALT 8 L 07/14/18 16:03 Labs- Entire Visit 07/14/18 07/14/18 07/14/18 09:46 09:46 09:46 WBC 8.8 RBC 4.45 Hgb 11.0 L Hct 33.2 L MCV 75 L MCH 24.8 L MCHC 33.2 RDW 18.9 H Plt Count 364 Seg Neutrophils % 71.2 Lymphocytes % 17.0 Monocytes % 9.1 Eosinophils % 1.7 Basophils % 1.0 Absolute Neutrophils 6.3 Absolute Lymphocytes 1.5 Absolute Monocytes 0.8 Absolute Eosinophils 0.1 Absolute Basophils 0.1 Sodium 138.1 Potassium 4.6 Chloride 104 Carbon Dioxide 27 Anion Gap 7 BUN 11 Creatinine 0.66 Est GFR ( Amer) > 60 Est GFR (Non-Af Amer) > 60 Glucose 91 Calcium 9.2 Total Bilirubin 0.4 Direct Bilirubin 0.3 Neonat Total Bilirubin Not Reportable Neonat Direct Bilirubin Not Reportable Neonat Indirect Bili Not Reportable AST 35 ALT 8 L Alkaline Phosphatase 108 Creatine Kinase 99 CK-MB (CK-2) 0.25 Troponin I < 0.012 Total Protein 8.1 Albumin 4.4 Lipase Serum HCG, Qual Urine Color Urine Appearance Urine pH Ur Specific [place] Urine Protein Urine Glucose (UA) Urine Ketones Urine Blood Urine Nitrite Urine Bilirubin Urine Urobilinogen Ur Leukocyte Esterase Urine WBC (Auto) Urine RBC (Auto) Squamous Epi Cells Auto Urine Mucus (Auto) Urine Ascorbic Acid 07/14/18 07/14/18 07/14/18 09:46 09:46 11:26 WBC RBC Hgb Hct MCV MCH MCHC RDW Plt Count Seg Neutrophils % Lymphocytes % Monocytes % Eosinophils % Basophils % Absolute Neutrophils Absolute Lymphocytes Absolute Monocytes Absolute Eosinophils Absolute Basophils Sodium Potassium Chloride Carbon Dioxide Anion Gap BUN Creatinine Est GFR ( Amer) Est GFR (Non-Af Amer) Glucose Calcium Total Bilirubin Direct Bilirubin Neonat Total Bilirubin Neonat Direct Bilirubin Neonat Indirect Bili AST ALT Alkaline Phosphatase Creatine Kinase CK-MB (CK-2) Troponin I Total Protein Albumin Lipase 70.2 Serum HCG, Qual NEGATIVE Urine Color YELLOW Urine Appearance CLEAR Urine pH 7.0 Ur Specific [place] 1.014 Urine Protein NEGATIVE Urine Glucose (UA) NEGATIVE Urine Ketones NEGATIVE Urine Blood NEGATIVE Urine Nitrite NEGATIVE Urine Bilirubin NEGATIVE Urine Urobilinogen NEGATIVE Ur Leukocyte Esterase NEGATIVE Urine WBC (Auto) 3 Urine RBC (Auto) 0 Squamous Epi Cells Auto <1 Urine Mucus (Auto) RARE Urine Ascorbic Acid NEGATIVE 07/14/18 14:56 WBC RBC Hgb Hct MCV MCH MCHC RDW Plt Count Seg Neutrophils % Lymphocytes % Monocytes % Eosinophils % Basophils % Absolute Neutrophils Absolute Lymphocytes Absolute Monocytes Absolute Eosinophils Absolute Basophils Sodium Potassium Chloride Carbon Dioxide Anion Gap BUN Creatinine Est GFR ( Amer) Est GFR (Non-Af Amer) Glucose Calcium Total Bilirubin Direct Bilirubin Neonat Total Bilirubin Neonat Direct Bilirubin Neonat Indirect Bili AST ALT Alkaline Phosphatase Creatine Kinase CK-MB (CK-2) Troponin I < 0.012 Total Protein Albumin Lipase Serum HCG, Qual Urine Color Urine Appearance Urine pH Ur Specific [place] Urine Protein Urine Glucose (UA) Urine Ketones Urine Blood Urine Nitrite Urine Bilirubin Urine Urobilinogen Ur Leukocyte Esterase Urine WBC (Auto) Urine RBC (Auto) Squamous Epi Cells Auto Urine Mucus (Auto) Urine Ascorbic Acid - Diagnostic Test Radiology reviewed: Reports reviewed - EKG Interpretation by Me EKG shows normal: Sinus rhythm Rate: Normal Voltage: Increased voltage Additional EKG results interpreted by me: 07/14/18 16:[address] elevation, QTc 418 Discharge - Discharge Clinical Impression: Chest pain in adult Abdominal pain Qualifiers: Abdominal location: unspecified location Qualified Code(s): R10.9 - Unspecified abdominal pain GERD (gastroesophageal reflux disease) Qualifiers: Esophagitis presence: esophagitis presence not specified Qualified Code(s): K21.9 - Gastro-esophageal reflux disease without esophagitis Condition: Stable Disposition: HOME, SELF-CARE Instructions: Abdominal Pain ([facility]), Chest Pain of Unclear Cause ([facility]), Reflux Disease (GERD) ([facility]) Additional Instructions: Return immediately for any new or worsening symptoms Followup with your primary care provider, call tomorrow to make a followup appointment Stop smoking Follow-up with cardiology for recheck Take your blood pressure medication as prescribed Prescriptions: Losartan Potassium [Cozaar 25 mg Tablet] 25 mg PO BID #60 tablet Sucralfate [Carafate 1 gm Tablet] 1 gm PO ACHS #40 tablet Forms: Smoking Cessation Education, Return to Work Referrals: SHAKA PRUETT FNP [NURSE PRACTITIONER] - Follow up as needed ORLANDO CAMERON MD [ACTIVE STAFF] - Follow up as needed NIYA HOYT MD [ACTIVE STAFF] - Follow up as needed
[2018-07-14 10:33] LABS: CREATINE KINASE MB 0.25 ng/mL (<4.55)
[2018-07-14 10:34] LABS: TROPONIN I < 0.012 ng/mL
[2018-07-14 11:07] LABS: LIPASE 70.2 U/L (23-300)
[2018-07-14 11:55] LABS: APPEARANCE,URINE CLEAR; BILIRUBIN,URINE NEGATIVE (NEGATIVE); COLOR,URINE YELLOW; GLUCOSE, URINE NEGATIVE (NEGATIVE); KETONES,URINE NEGATIVE (NEGATIVE); LEUKOCYTE ESTERASE,URINE NEGATIVE (NEGATIVE); NITRITE,URINE NEGATIVE (NEGATIVE); PROTEIN,URINE NEGATIVE (NEGATIVE); URINE SPECIFIC GRAVITY 1.014; UROBILINOGEN,URINE NEGATIVE mg/dL (<2.0)
--- NOTE | 2018-07-14 12:03 | RADIOLOGY REPORT (SQ) ---
EXAM DESCRIPTION: ABDOMEN 2 VIEWS COMPLETED DATE/TIME: 07/14/2018 11:37 am REASON FOR STUDY: r side abd pain COMPARISON: None. NUMBER OF VIEWS: Two views. TECHNIQUE: Supine and erect/decubitus radiographic images of the abdomen acquired. LIMITATIONS: None. FINDINGS: FREE AIR: None. No abnormal gas collections. LUNG BASES: Clear. BOWEL GAS PATTERN: Nonobstructive pattern. Mild dilated colon right side of the abdomen. A few smal l air-fluid levels on the upright image. CALCIFICATIONS: No suspicious calcifications. SOFT TISSUES: No gross mass or suggestion of organomegaly. HARDWARE: Prior cholecystectomy. None in the abdomen. BONES: No acute fracture. No worrisome bone lesions. OTHER: Bilateral tubal ligation clips. IMPRESSION: 1. Abnormal nonspecific gas pattern with a few small air-fluid levels on the upright im age. TECHNICAL DOCUMENTATION: JOB ID: [id number] [employer]- All Rights Reserved Reading location - IP/workstation name: [email or web address]
--- NOTE | 2018-07-14 15:04 | RADIOLOGY REPORT (SQ) ---
EXAM DESCRIPTION: CT ABD/PELVIS WITH IV ORAL COMPLETED DATE/TIME: 07/14/2018 2:48 pm REASON FOR STUDY: R side abd pain COMPARISON: Three-way abdomen series [id number] Two-view chest 07/14/2018 CT angio chest 08/19/2017 TECHNIQUE: CT scan of the abdomen and pelvis performed using helical scanning technique with dynamic intravenous contrast injection. Patient drank oral contrast. Images reviewed with lung, soft tissue , and bone windows. Reconstructed coronal and sagittal MPR images reviewed. Delayed images for evalua tion of the urinary system also acquired. All images stored on PACS. All CT scanners at this facility use dose modulation, iterative reconstruction, and/or weight based d osing when appropriate to reduce radiation dose to as low as reasonably achievable (ALARA). [facility]: Dose Right [facility]: CareDose [facility]: Dose Right [facility]: Teradose 4D [facility]: [employer] CONTRAST TYPE AND DOSE: contrast/concentration: Isovue 350.00 mg/ml; Total Contrast Delivered: 74.0 ml; Total Saline Delivered: 47.0 ml RENAL FUNCTION: GFR > 60. RADIATION DOSE: CT Rad equipment meets quality standard of care and radiation dose reduction techniq ues were employed. CTDIvol: 8.3 - 11.0 mGy. DLP: 939 mGy-cm.. LIMITATIONS: None. FINDINGS: LOWER CHEST: No significant findings. No nodules or infiltrates. LIVER: Normal size. No masses. No dilated ducts. SPLEEN: Normal size. No focal lesions. PANCREAS: No masses. No significant calcifications. No adjacent inflammation or peripancreatic fluid collections. Pancreatic duct not dilated. GALLBLADDER: Surgically absent. Common bile duct 10 mm in diameter on coronal image 28, within molly l limits post cholecystectomy. ADRENAL GLANDS: No significant masses or asymmetry. RIGHT KIDNEY AND URETER: No solid masses. No significant calcifications. No hydronephrosis or hyd roureter. LEFT KIDNEY AND URETER: No solid masses. No significant calcifications. No hydronephrosis or hydr oureter. AORTA AND VESSELS: No aneurysm. No dissection. Renal arteries, SMA, celiac without stenosis. RETROPERITONEUM: No retroperitoneal adenopathy, hemorrhage or masses. BOWEL AND PERITONEAL CAVITY: Patient drank oral contrast. No CT evidence of bowel obstruction or letty e intraperitoneal air or fluid. Moderate stool in the descending colon and rectosigmoid. APPENDIX: Surgically absent PELVIS: No mass. Trace cul-de-sac free fluid. Normal bladder. Clips post tubal ligation, normal siz e uterus and ovaries. ABDOMINAL WALL: No masses. No hernias. BONES: No significant or acute findings. OTHER: Findings discussed with Karoline Ho in the emergency room IMPRESSION: Post cholecystectomy and appendectomy No CT evidence of bowel obstruction TECHNICAL DOCUMENTATION: JOB ID: [id number] Quality ID # [id number]: Final reports with documentation of one or more dose reduction techniques (e.g., Au tomated exposure control, adjustment of the mA and/or kV according to patient size, use of iterative reconstruction technique) 2010 [employer]- All Rights Reserved Reading location - IP/workstation name: [email or web address]
[2018-07-14 16:48] VITALS: BP 138/87
--- NOTE | 2018-07-15 13:13 | EKG REPORT ---
SEVERITY:- ABNORMAL ECG - SINUS RHYTHM PROBABLE LEFT ATRIAL ABNORMALITY PROBABLE LEFT VENTRICULAR HYPERTROPHY : Confirmed by: Juan Willis MD 15-Jul-2018 13:13:13
== END 2018-07-14 16:44 | disposition home or self-care (01) ==
LOC: ER 08:27
DX: R07.9 Chest pain, unspecified (principal); K21.9 Gastro-esophageal reflux disease without esophagitis; R10.9 Unspecified abdominal pain; M25.512 Pain in left shoulder; R06.02 Shortness of breath; R51 Headache; R11.0 Nausea; F17.200 Nicotine dependence, unspecified, uncomplicated; I10 Essential (primary) hypertension
CPT/HCPCS: 93005; 99285; 36415; 82553; 82550; 83690; 84703; 85025; 80053; 81001; 84484; 74019; 71046; 74177; 93010; J3490

== ENCOUNTER 2018-12-16 12:24 | Emergency (ER) | payer SELFPAY ==
[2018-12-16] MEDS ORDERED: ASPIRIN 81 MG TABLET, CHEWABLE PO ONE (12:54)
--- NOTE | 2018-12-16 12:59 | ER Document Report ---
ED Medical Screen (RME) - General Chief Complaint: Chest Pain Stated Complaint: CHEST PAIN Time Seen by Provider: 12/16/18 12:49 Primary Care Provider: SHAKA PRUETT FNP [Primary Care Provider] - Follow up as needed Notes: Patient is a 43-year-old female with a history of hypertension who presents to the emergency department with a chief complaint of chest pain. Patient states this morning around 6 AM she was ambulating when she developed midsternal chest pain. Patient states it felt like a squeezing. Patient states that she did take Tylenol and rested which did seem to help with her discomfort. Patient states this morning she was at work when the squeezing started to return and she decided to seek medical attention in the emergency department. Patient states when the squeezing is present it radiates to the left jaw and left arm. Patient reports a history of anemia in which she does take iron for. TRAVEL OUTSIDE OF THE [place] IN LAST 30 DAYS: No - Related Data Allergies/Adverse Reactions: No Known Allergies Allergy (Verified 12/16/18 12:36) Past Medical History - Social History Chew tobacco use (# tins/day): No Frequency of alcohol use: Social Drug Abuse: None - Past Medical History Cardiac Medical History: Reports: Hx Hypercholesterolemia, Hx Hypertension Renal/ Medical History: Denies: Hx Peritoneal Dialysis GI Medical History: Reports: Hx Gastroesophageal Reflux Disease Past Surgical History: Reports: Hx Appendectomy, Hx Cholecystectomy, Hx Tubal Ligation - Immunizations History of Influenza Vaccine for 02/2017 - 07/2017 Season: No Physical Exam - Vital signs Vitals: Temp Pulse Resp BP Pulse Ox 98.2 F 93 18 131/84 H 99 12/16/18 12:41 12/16/18 12:41 12/16/18 12:41 12/16/18 12:41 12/16/18 12:41 - Cardiovascular Rhythm: Regular Heart sounds: Normal auscultation, S1 appreciated, S2 appreciated - Abdominal Inspection: Normal Distension: No distension Bowel sounds: Normal Tenderness: Nontender Organomegaly: No organomegaly Course - Re-evaluation Re-evalutation: 12/16/18 12:59 I have greeted and performed a rapid initial assessment of this patient. A comprehensive ED assessment and evaluation of the patient, analysis of test results and completion of the medical decision making process will be conducted by additional ED providers. - Vital Signs Vital signs: Temp Pulse Resp BP Pulse Ox 98.2 F 93 18 131/84 H 99 12/16/18 12:41 12/16/18 12:41 12/16/18 12:41 12/16/18 12:41 12/16/18 12:41 Doctor's Discharge - Discharge Referrals: SHAKA PRUETT FNP [Primary Care Provider] - Follow up as needed
--- NOTE | 2018-12-16 13:27 | RADIOLOGY REPORT (SQ) ---
EXAM DESCRIPTION: CHEST 2 VIEWS COMPLETED DATE/TIME: 12/16/2018 1:19 pm REASON FOR STUDY: chest pain COMPARISON: 07/14/2018 EXAM PARAMETERS: NUMBER OF VIEWS: two views TECHNIQUE: Digital Frontal and Lateral radiographic views of the chest acquired. RADIATION DOSE: NA LIMITATIONS: none FINDINGS: LUNGS AND PLEURA: No opacities, masses or pneumothorax. No pleural effusion. MEDIASTINUM AND HILAR STRUCTURES: No masses or contour abnormalities. HEART AND VASCULAR STRUCTURES: Heart normal size. No evidence for failure. BONES: No acute findings. HARDWARE: Prior cholecystectomy. OTHER: No other significant finding. IMPRESSION: NO ACUTE RADIOGRAPHIC FINDING IN THE CHEST. TECHNICAL DOCUMENTATION: JOB ID: [id number] [employer]- All Rights Reserved Reading location - IP/workstation name: [email or web address]
[2018-12-16 13:28] LABS: ABSOLUTE EOSINOPHILS # (AUTO) 0.2 10^3/uL (0.0-0.6); ABSOLUTE LYMPHOCYTES (AUTO) 1.7 10^3/uL (0.5-4.7); ABSOLUTE MONOCYTES (AUTO) 1.1 10^3/uL (0.1-1.4); ABSOLUTE NEUT (AUTO) 5.3 10^3/uL (1.7-8.2); BASOPHILS % (AUTO) 0.6 % (0-2); HEMATOCRIT 33.5 % (36.0-47.0); HEMOGLOBIN 10.7 g/dL (12.0-15.5); LYMPHOCYTES % (AUTO) 20.6 % (13-45); MEAN CORPUSCULAR HEMOGLOBIN 23.6 pg (27.0-33.4); MEAN CORPUSCULAR VOLUME 74 fl (80-97); PLATELET COUNT 336 10^3/uL (150-450); RED BLOOD COUNT 4.54 10^6/uL (3.72-5.28); RED CELL DISTRIBUTION WIDTH 19.7 % (11.5-14.0); SEGMENTED NEUTROPHILS % (AUTO) 63.8 % (42-78); TOTAL CELLS COUNTED % (AUTO) 100 %; WHITE BLOOD COUNT 8.3 10^3/uL (4.0-10.5)
[2018-12-16 13:36] LABS: ALKALINE PHOSPHATASE 85 U/L (38-126); ANION GAP 7 (5-19); ASPARTATE AMINO TRANSFERASE 19 U/L (14-36); BILIRUBIN,DIRECT 0.2 mg/dL (0.0-0.4); BILIRUBIN,TOTAL 0.2 mg/dL (0.2-1.3); BLOOD UREA NITROGEN 11 mg/dL (7-20); CALCIUM 9.1 mg/dL (8.4-10.2); CARBON DIOXIDE 26 mmol/L (22-30); CHLORIDE 105 mmol/L (98-107); GLUCOSE 78 mg/dL (75-110); POTASSIUM 4.3 mmol/L (3.6-5.0)
--- NOTE | 2018-12-16 14:52 | EKG REPORT ---
SEVERITY:- ABNORMAL ECG - SINUS RHYTHM CONSIDER LEFT VENTRICULAR HYPERTROPHY : Confirmed by: Percy Butcher 16-Dec-2018 14:50:58
--- NOTE | 2018-12-16 17:36 | ER Document Report ---
Entered by JIMMY KRISHNAN SCRIBE 12/16/18 1524 Acting as scribe for:NOAH EVANS DO ED General - General Chief Complaint: Chest Pain Stated Complaint: CHEST PAIN Time Seen by Provider: 12/16/18 12:49 Primary Care Provider: SHAKA PRUETT FNP [NURSE PRACTITIONER] - Follow up in 3-5 days Mode of Arrival: Ambulatory Information source: Patient Notes: Patient is a 43-year-old female with GERD who presents to the emergency department today for complaints of a squeezing like chest pain which began this morning at 0600. Patient states that she has had a similar pain in the past which has always turned out to be her GERD. Patient denies any change in her pain with breathing or movement. Patient denies any calf/leg pain or swelling. TRAVEL OUTSIDE OF THE [place] IN LAST 30 DAYS: No - Related Data Allergies/Adverse Reactions: No Known Allergies Allergy (Verified 12/16/18 12:36) Past Medical History - General Information source: Patient - Social History Smoking Status: Current Every Day Smoker Cigarette use (# per day): No - smokes "one cigar" a day Chew tobacco use (# tins/day): No Frequency of alcohol use: Social Drug Abuse: None Lives with: Family Family History: Reviewed & Not Pertinent, DM, Hypertension Patient has suicidal ideation: No Patient has homicidal ideation: No - Past Medical History Cardiac Medical History: Reports: Hx Hypercholesterolemia, Hx Hypertension Renal/ Medical History: Denies: Hx Peritoneal Dialysis GI Medical History: Reports: Hx Gastroesophageal Reflux Disease Past Surgical History: Reports: Hx Appendectomy, Hx Cholecystectomy, Hx Tubal Ligation Review of Systems - Review of Systems Constitutional: No symptoms reported EENT: No symptoms reported Cardiovascular: See HPI, Chest pain Respiratory: denies: Hurts to breathe, Short of breath Gastrointestinal: No symptoms reported Genitourinary: No symptoms reported Female Genitourinary: No symptoms reported Musculoskeletal: denies: Leg swelling Skin: No symptoms reported Hematologic/Lymphatic: No symptoms reported Neurological/Psychological: No symptoms reported -: Yes All other systems reviewed and negative Physical Exam - Vital signs Vitals: Temp Pulse Resp BP Pulse Ox 98.2 F 93 18 131/84 H 99 12/16/18 12:41 12/16/18 12:41 12/16/18 12:41 12/16/18 12:41 12/16/18 12:41 - Notes Notes: Physical Exam: General: Alert, appears well. HEENT: Normocephalic. Atraumatic. PERRL. Extraocular movements intact. Oropharynx clear. Neck: Supple. Non-tender. Respiratory: No respiratory distress. Clear and equal breath sounds bilaterally. Cardiovascular: Regular rate and rhythm. Abdominal: Normal Inspection. Non-tender. No distension. Normal Bowel Sounds. Back: Non-tender. No deformity or step off. Extremities: Moves all four extremities. Upper extremities: Normal inspection. Normal ROM. Lower extremities: Normal inspection. No edema. Normal ROM. Neurological: Normal cognition. AAOx4. Normal speech. Psychological: Normal affect. Normal Mood. Skin: Warm. Dry. Normal color. Course - Re-evaluation Re-evalutation: 12/16/18 17:34 Patient is a 43-year-old female who comes in complaining of intermittent chest pain. Last episode was at 6 AM. Patient thinks that it is likely reflux which she has had before. Patient has a history of high blood pressure and high c holesterol. Troponin is negative. No acute EKG findings. Patient has a low heart score. She will be discharged home as she has been asymptomatic in the emergency department with no changes on her EKG and 2- troponins. No pleuritic chest pain and low Wells score. She is to follow-up with her doctor and return if she has any further's concerns or symptoms. Understands agrees with plan. Stable for discharge. - Vital Signs Vital signs: Temp Pulse Resp BP Pulse Ox 98.2 F 93 18 131/84 H 99 12/16/18 12:41 12/16/18 12:41 12/16/18 12:41 12/16/18 12:41 12/16/18 12:41 - Laboratory Result Diagrams: 12/16/18 13:05 12/16/18 13:05 Laboratory results interpreted by me: 12/16/18 13:05 Hgb 10.7 L Hct 33.5 L MCV 74 L MCH 23.6 L RDW 19.7 H - Diagnostic Test Radiology reviewed: Reports reviewed - EKG Interpretation by Nj EKG shows normal: Sinus rhythm Rate: Normal Rhythm: NSR When compared to previous EKG there are: No significant change Discharge - Discharge Clinical Impression: Chest pain in adult Condition: Stable Disposition: HOME, SELF-CARE Instructions: Chest Pain of Unclear Cause ([facility]) Referrals: SHAKA PRUETT FNP [NURSE PRACTITIONER] - Follow up in 3-5 days Scribe Attestation: 12/16/18 17:35 I personally performed the services described in the documentation, reviewed and edited the documentation which was dictated to the scribe in my presence, and it accurately records my words and actions. I personally performed the services described in the documentation, reviewed and edited the documentation which was dictated to the scribe in my presence, and it accurately records my words and actions.
[2018-12-16 17:38] VITALS: BP 148/78
== END 2018-12-16 17:42 | disposition home or self-care (01) ==
LOC: ER 12:24
DX: R07.9 Chest pain, unspecified (principal); K21.9 Gastro-esophageal reflux disease without esophagitis; F17.200 Nicotine dependence, unspecified, uncomplicated; E78.00 Pure hypercholesterolemia, unspecified; I10 Essential (primary) hypertension; Z90.49 Acquired absence of other specified parts of digestive tract; Z98.51 Tubal ligation status
CPT/HCPCS: 36415; 71046; 80053; 84484; 85025; 93005; 93010; 99285

== ENCOUNTER 2019-07-18 07:24 | Emergency (ER) | payer SELFPAY ==
[2019-07-18 08:18] LABS: ABSOLUTE BASOPHILS # (AUTO) 0.2 10^3/uL (0.0-0.2); ABSOLUTE EOSINOPHILS # (AUTO) 0.2 10^3/uL (0.0-0.6); ABSOLUTE LYMPHOCYTES (AUTO) 1.5 10^3/uL (0.5-4.7); ABSOLUTE MONOCYTES (AUTO) 1.1 10^3/uL (0.1-1.4); BASOPHILS % (AUTO) 1.4 % (0-2); EOSINOPHILS % (AUTO) 1.5 % (0-6); HEMATOCRIT 34.5 % (36.0-47.0); HEMOGLOBIN 11.2 g/dL (12.0-15.5); MEAN CORPUSCULAR HEMOGLOBIN 23.7 pg (27.0-33.4); MEAN CORPUSCULAR HGB CONC 32.5 g/dL (32.0-36.0); MEAN CORPUSCULAR VOLUME 73 fl (80-97); PLATELET COUNT 377 10^3/uL (150-450); RED BLOOD COUNT 4.73 10^6/uL (3.72-5.28); RED CELL DISTRIBUTION WIDTH 21.3 % (11.5-14.0); SEGMENTED NEUTROPHILS % (AUTO) 73.1 % (42-78); TOTAL CELLS COUNTED % (AUTO) 100 %
[2019-07-18 08:26] LABS: APPEARANCE,URINE CLEAR; BILIRUBIN,URINE NEGATIVE (NEGATIVE); COLOR,URINE STRAW; GLUCOSE, URINE NEGATIVE (NEGATIVE); KETONES,URINE NEGATIVE (NEGATIVE); LEUKOCYTE ESTERASE,URINE NEGATIVE (NEGATIVE); NITRITE,URINE NEGATIVE (NEGATIVE); PROTEIN,URINE NEGATIVE (NEGATIVE); URINE SPECIFIC GRAVITY 1.004; UROBILINOGEN,URINE NEGATIVE mg/dL (<2.0)
[2019-07-18 08:34] LABS: ALBUMIN 4.8 g/dL (3.5-5.0); ALKALINE PHOSPHATASE 128 U/L (38-126); ANION GAP 12 (5-19); ASPARTATE AMINO TRANSFERASE 27 U/L (14-36); BILIRUBIN,DIRECT 0.4 mg/dL (0.0-0.4); BILIRUBIN,TOTAL 0.6 mg/dL (0.2-1.3); BLOOD UREA NITROGEN 7 mg/dL (7-20); CALCIUM 9.6 mg/dL (8.4-10.2); CARBON DIOXIDE 23 mmol/L (22-30); CHLORIDE 103 mmol/L (98-107); GLUCOSE 93 mg/dL (75-110); POTASSIUM 4.2 mmol/L (3.6-5.0); TOTAL PROTEIN 8.8 g/dL (6.3-8.2)
[2019-07-18] MEDS ORDERED: ONDANSETRON HCL INJ/PF 4 MG/2 ML SDV IV ONE (08:47)
[2019-07-18] MEDS ORDERED: FENTANYL CITRATE INJ/PF 100 MCG/2 ML AMPUL IV ONE (08:47)
--- NOTE | 2019-07-18 08:47 | ER Document Report ---
ED GI/ - General Chief Complaint: Abdominal Pain Stated Complaint: ABDOMINAL PAIN Notes: CHIEF COMPLAINT: Left lower quadrant abdominal pain for 2 days HPI: 44-year-old female with prior history of appendectomy presenting to the emergency department complaining of progressively worsening pain in the left lower quadrant with nausea vomiting over the last 2 days. No dysuria. No history of diverticular disease. Denies diarrhea has had slight constipation ROS: See HPI - all other systems were reviewed and are otherwise negative Constitutional: no fever Eyes: no drainage, no blurred vision ENT: no runny nose, no sore throat Cardiovascular: no chest pain Resp: no SOB, no cough GI: Positive vomiting, no diarrhea, positive abdominal pain : no dysuria Integumentary: no rash Allergy: no hives Musculoskeletal: no extremity pain or swelling Neurological: no numbness/tingling, no weakness MEDICATIONS: I agree with the patient medications as charted by the RN. ALLERGIES: I agree with the allergies as charted by the RN. PAST MEDICAL HISTORY/PAST SURGICAL HISTORY: Reviewed and agree as charted by RN. SOCIAL HISTORY: Reviewed and agree as charted by RN. FAMILY HISTORY: No significant familial comorbid conditions directly related to patient complaint EXAM: Reviewed vital signs as charted by RN. CONSTITUTIONAL: Alert and oriented and responds appropriately to questions. Well-appearing; well-nourished, mild distress secondary to pain HEAD: Normocephalic; atraumatic EYES: PERRL; Conjunctivae clear, sclerae non-icteric ENT: normal nose; no rhinorrhea; moist mucous membranes; pharynx without lesions noted, no uvula edema or deviation, no tonsillar hypertrophy, phonation normal NECK: Supple without meningismus; non-tender; no cervical lymphadenopathy, no masses CARD: RRR; no murmurs, no clicks, no rubs, no gallops; symmetric distal pulses RESP: Normal chest excursion without splinting or tachypnea; breath sounds clear and equal bilaterally; no wheezes, no rhonchi, no rales, pulse oximetry 98% on room air not hypoxic ABD/GI: Normal bowel sounds; non-distended; soft, mild tenderness in the left lower quadrant on palpation, no rebound, no guarding; no palpable organomegaly or masses. BACK: The back appears normal and is non-tender to palpation, there is no CVA tenderness EXT: Normal ROM in all joints; non-tender to palpation; no cyanosis, no effusions, no edema SKIN: Normal color for age and race; warm; dry; good turgor; no acute lesions noted NEURO: Moves all extremities equally; Motor and sensory function intact PSYCH: The patient's mood and manner are appropriate. Grooming and personal hygiene are appropriate. MDM: 44-year-old female with 2 days of progressive left lower quadrant pain no dysuria. Patient shows a very mild leukocytosis, urine does not show evidence of infection. Suspect likely diverticular disease. Will obtain CT TRAVEL OUTSIDE OF THE [place] IN LAST 30 DAYS: Yes - [employer] - Related Data Allergies/Adverse Reactions: No Known Allergies Allergy (Verified 07/18/19 07:37) Past Medical History - Social History Smoking Status: Current Every Day Smoker Chew tobacco use (# tins/day): No Frequency of alcohol use: None Drug Abuse: None Family History: Reviewed & Not Pertinent, DM, Hypertension Patient has suicidal ideation: No Patient has homicidal ideation: No - Past Medical History Cardiac Medical History: Reports: Hx Hypercholesterolemia, Hx Hypertension Renal/ Medical History: Denies: Hx Peritoneal Dialysis GI Medical History: Reports: Hx Gastroesophageal Reflux Disease Past Surgical History: Reports: Hx Appendectomy, Hx Cholecystectomy, Hx Tubal Ligation Physical Exam - Vital signs Vitals: Temp Pulse Resp BP Pulse Ox 98.0 F 78 16 173/88 H 100 07/18/19 07:27 07/18/19 07:27 07/18/19 07:27 07/18/19 07:27 07/18/19 07:27 Course - Re-evaluation Re-evalutation: 07/18/19 11:11 CT imaging does not show acute emergent abnormalities. Patient's lab work does not show acute emergent abnormalities. No definitive causation found for the patient's discomfort but no diverticulitis. Will discharge home with symptomatic treatment follow-up with PCP - Vital Signs Vital signs: Temp Pulse Resp BP Pulse Ox 98.0 F 78 16 173/88 H 100 07/18/19 07:27 07/18/19 07:27 07/18/19 07:27 07/18/19 07:27 07/18/19 07:27 - Laboratory Result Diagrams: 07/18/19 08:05 07/18/19 08:05 Laboratory results interpreted by me: 07/18/19 07/18/19 08:05 08:05 WBC 11.0 H Hgb 11.2 L Hct 34.5 L MCV 73 L MCH 23.7 L RDW 21.3 H Creatinine 0.51 L Alkaline Phosphatase 128 H Total Protein 8.8 H Discharge - Discharge Clinical Impression: Abdominal pain, left lower quadrant Condition: Stable Disposition: HOME, SELF-CARE Additional Instructions: Your lab work and CT imaging did not suggest a definitive answer as to why you are having discomfort in the left lower quadrant. Take the Bentyl to help with abdominal pain and spasm, Zofran for any nausea or vomiting, follow-up with primary care provider for reevaluation of symptoms call for appointment Prescriptions: Dicyclomine HCl [Bentyl 20 mg Tablet] 20 mg PO Q6H PRN #20 tablet PRN Reason: Ondansetron [Zofran Odt 4 mg Tablet] 1 - 2 tab PO Q4H PRN #15 tab.rapdis PRN Reason: For Nausea/Vomiting Referrals: LEX SWENSON DO [NO LOCAL MD] - Follow up as needed
--- NOTE | 2019-07-18 11:07 | RADIOLOGY REPORT (SQ) ---
EXAM DESCRIPTION: CT ABD/PELVIS WITH IV ONLY COMPLETED DATE/TIME: 07/18/2019 10:39 am REASON FOR STUDY: LLQ pain COMPARISON: 07/14/2018 TECHNIQUE: CT scan of the abdomen and pelvis performed using helical scanning technique with dynamic intravenous contrast injection. No oral contrast. Images reviewed with lung, soft tissue, and bone windows. Reconstructed coronal and sagittal MPR images reviewed. Delayed images for evaluation of the urinary system also acquired. All images stored on PACS. All CT scanners at this facility use dose modulation, iterative reconstruction, and/or weight based d osing when appropriate to reduce radiation dose to as low as reasonably achievable (ALARA). [facility]: Dose Right [facility]: CareDose [facility]: Dose Right [facility]: Teradose 4D [facility]: FireEye CONTRAST TYPE AND DOSE: contrast/concentration: Isovue 350.00 mg/ml; Total Contrast Delivered: 74.0 ml; Total Saline Delivered: 67.0 ml RENAL FUNCTION: BUN 7; creatinine 0.51 RADIATION DOSE: CT Rad equipment meets quality standard of care and radiation dose reduction techniq ues were employed. CTDIvol: 6.1 - 8.0 mGy. DLP: 656 mGy-cm.. LIMITATIONS: None. FINDINGS: LOWER CHEST: No significant findings. No nodules or infiltrates. LIVER: Normal size. No masses. No dilated ducts. SPLEEN: Normal size. No focal lesions. PANCREAS: No masses. No significant calcifications. No adjacent inflammation or peripancreatic fluid collections. Pancreatic duct not dilated. GALLBLADDER: Surgically absent. ADRENAL GLANDS: No significant masses or asymmetry. RIGHT KIDNEY AND URETER: No solid masses. No significant calcifications. No hydronephrosis or hyd roureter. LEFT KIDNEY AND URETER: No solid masses. No significant calcifications. No hydronephrosis or hydr oureter. AORTA AND VESSELS: No aneurysm. No dissection. Renal arteries, SMA, celiac without stenosis. RETROPERITONEUM: No retroperitoneal adenopathy, hemorrhage or masses. BOWEL AND PERITONEAL CAVITY: No masses or inflammatory changes. No free fluid or peritoneal masses. APPENDIX: Surgically absent. PELVIS: The uterus appears enlarged and heterogeneous, similar to that seen on comparison imaging. T he bladder is unremarkable. No pelvic lymphadenopathy or masses are demonstrated. ABDOMINAL WALL: No masses or hernias. BONES: Degenerative changes are seen of the hips and spine. OTHER: No other significant finding. IMPRESSION: No evidence of acute intra-abdominal infectious/inflammatory process. TECHNICAL DOCUMENTATION: JOB ID: [id number] Quality ID # [id number]: Final reports with documentation of one or more dose reduction techniques (e.g., Au tomated exposure control, adjustment of the mA and/or kV according to patient size, use of iterative reconstruction technique) 2010 [employer]- All Rights Reserved Reading location - IP/workstation name: [email or web address]
[2019-07-18 11:58] VITALS: BP 168/89
== END 2019-07-18 11:49 | disposition home or self-care (01) ==
LOC: ER 07:24
DX: R10.32 Left lower quadrant pain (principal); R11.2 Nausea with vomiting, unspecified; F17.200 Nicotine dependence, unspecified, uncomplicated; E78.00 Pure hypercholesterolemia, unspecified; I10 Essential (primary) hypertension; Z90.49 Acquired absence of other specified parts of digestive tract; Z98.51 Tubal ligation status
CPT/HCPCS: 99284; 96374; 96375; 36415; 83690; 85025; 81025; 80053; 81001; 74177; J3010; J2405

== ENCOUNTER → 2019-11-15 | Outpatient (CLI) | payer BC ==
--- NOTE | 2019-11-15 10:32 | WOMENS IMAGING REPORT ---
EXAM DESCRIPTION: 3D SCREENING MAMMO BILAT IMAGES COMPLETED DATE/TIME: 11/15/2019 8:02 am REASON FOR STUDY: Z15.01 GENETIC SUSCEPTIBILITY TO MALIGNANT NEOPLASM OF BREAST Z15.01 GENETIC SUSC EPTIBILITY TO MALIGNANT NEOPLASM OF BREAS Z12.31 ENCNTR SCREEN MAMMOGRAM FOR MALIGNANT NEOPLASM OF B RE COMPARISON: None. EXAM PARAMETERS: Views: Standard craniocaudal and mediolateral oblique views of each breast recorded using digital acquisition and breast tomosynthesis. Read with the assistance of CAD. .[facility] - .[employer] Supervisor Version 9.2 LIMITATIONS: None. FINDINGS: No suspicious masses, suspicious calcifications or architectural distortion. No areas of c oncern. IMPRESSION: NEGATIVE MAMMOGRAM. BIRADS 1. BREAST DENSITY: b. There are scattered areas of fibroglandular density. BIRAD: ASSESSMENT: 1 NEGATIVE RECOMMENDATION: ROUTINE SCREENING Please continue yearly bilateral screening mammography/tomosynthesis in November 2020 COMMENT: The patient has been notified of the results by letter per [place] requirements. Additional no tification policies are in place for contacting patient with suspicious or incomplete findings. Quality ID #[id number]: The [employer] recommends an annual screening mammogram for women aged 40 years or over. This facility utilizes a reminder system to ensure that all patients receive reminder letters, and/or direct phone calls for appointments. This includes reminders for routine scr eening mammograms, diagnostic mammograms, or other Breast Imaging Interventions when appropriate. Th is patient will be placed in the appropriate reminder system. TECHNICAL DOCUMENTATION: FINDING NUMBER: (1) ASSESSMENT: (1) JOB ID: [id number] 2010 [employer]- All Rights Reserved Reading location - IP/workstation name: [email or web address]
== END ==
LOC: WI 06:55
PROVIDERS: ATTEND Internal Medicine Hematology & Oncology
DX: Z12.31 Encounter for screening mammogram for malignant neoplasm of breast (principal); Z15.01 Genetic susceptibility to malignant neoplasm of breast
CPT/HCPCS: 77063; 77067

== ENCOUNTER 2020-03-10 16:34 | Emergency (ER) | payer BC ==
[2020-03-10 16:44] VITALS: BP 176/97
[2020-03-10] MEDS ORDERED: ASPIRIN 325 MG TABLET PO ONE (17:24)
--- NOTE | 2020-03-10 17:26 | ER Document Report ---
ED Medical Screen (RME) - General Chief Complaint: High Blood Pressure Stated Complaint: CHEST PAIN,BLOOD PRESSURE PROBLEM Time Seen by Provider: 03/10/20 17:18 Primary Care Provider: JAMES ALBEROT MD [Primary Care Provider] - Follow up as needed Mode of Arrival: Ambulatory Information source: Patient Notes: 45-year-old -[place] female with known hypertension not taking medicine coming in today with chest pressure and headache. Supposed to be taking 3 different blood pressure medications but has not gotten them refilled. Reports had a stress test about a year ago in [place] that was unremarkable. General exam: No acute distress Cardiac regular rate and rhythm Pulmonary clear to auscultation Abdomen nontender nondistended Neuro no focal deficits I have greeted and performed a rapid initial assessment of this patient. A comprehensive ED assessment and evaluation of the patient, analysis of test results and completion of the medical decision making process will be conducted by additional ED providers. TRAVEL OUTSIDE OF THE [place] IN LAST 30 DAYS: Yes - [employer] - Related Data Allergies/Adverse Reactions: No Known Allergies Allergy (Verified 03/10/20 17:06) Home Medications: PAtient ran out of home medications Past Medical History - Social History Frequency of alcohol use: Occasional Drug Abuse: None - Past Medical History Cardiac Medical History: Reports: Hx Hypercholesterolemia, Hx Hypertension Renal/ Medical History: Denies: Hx Peritoneal Dialysis GI Medical History: Reports: Hx Gastroesophageal Reflux Disease Past Surgical History: Reports: Hx Appendectomy, Hx Cholecystectomy, Hx Tubal Ligation Physical Exam - Vital signs Vitals: Temp Pulse Resp BP Pulse Ox 99.0 F 103 H 16 176/97 H 100 03/10/20 16:43 03/10/20 16:43 03/10/20 16:43 03/10/20 16:43 03/10/20 16:43 Course - Vital Signs Vital signs: Temp Pulse Resp BP Pulse Ox 99.0 F 103 H 16 176/97 H 100 03/10/20 16:43 03/10/20 16:43 03/10/20 16:43 03/10/20 16:43 03/10/20 16:43 Doctor's Discharge - Discharge Referrals: JAMES ALBERTO MD [Primary Care Provider] - Follow up as needed
[2020-03-10 18:27] LABS: ABSOLUTE BASOPHILS # (AUTO) 0.1 10^3/uL (0.0-0.2); ABSOLUTE EOSINOPHILS # (AUTO) 0.3 10^3/uL (0.0-0.6); ABSOLUTE MONOCYTES (AUTO) 0.9 10^3/uL (0.1-1.4); ABSOLUTE NEUT (AUTO) 6.1 10^3/uL (1.7-8.2); BASOPHILS % (AUTO) 0.6 % (0-2); EOSINOPHILS % (AUTO) 2.7 % (0-6); HEMATOCRIT 36.5 % (36.0-47.0); HEMOGLOBIN 12.1 g/dL (12.0-15.5); LYMPHOCYTES % (AUTO) 21.7 % (13-45); MEAN CORPUSCULAR HEMOGLOBIN 26.2 pg (27.0-33.4); MEAN CORPUSCULAR VOLUME 79 fl (80-97); MONOCYTES % (AUTO) 10.1 % (3-13); PLATELET COUNT 369 10^3/uL (150-450); RED CELL DISTRIBUTION WIDTH 18.2 % (11.5-14.0); SEGMENTED NEUTROPHILS % (AUTO) 64.9 % (42-78); TOTAL CELLS COUNTED % (AUTO) 100 %; WHITE BLOOD COUNT 9.4 10^3/uL (4.0-10.5)
[2020-03-10 18:48] LABS: ANISOCYTOSIS 1+; HYPOCHROMASIA SLIGHT; PLATELET COMMENT ADEQUATE; POIKILOCYTOSIS SLIGHT; POLYCHROMASIA SLIGHT; TARGET CELLS SLIGHT; TEAR DROP CELLS SLIGHT
[2020-03-10 18:58] LABS: ALBUMIN 4.5 g/dL (3.5-5.0); ALKALINE PHOSPHATASE 126 U/L (38-126); ANION GAP 7 (5-19); ASPARTATE AMINO TRANSFERASE 24 U/L (14-36); BILIRUBIN,DIRECT 0.1 mg/dL (0.0-0.4); BILIRUBIN,TOTAL 0.2 mg/dL (0.2-1.3); BLOOD UREA NITROGEN 8 mg/dL (7-20); CALCIUM 9.6 mg/dL (8.4-10.2); CARBON DIOXIDE 29 mmol/L (22-30); CHLORIDE 102 mmol/L (98-107); CREATINE KINASE 138 U/L (30-135); GLUCOSE 101 mg/dL (75-110); POTASSIUM 4.3 mmol/L (3.6-5.0); TOTAL PROTEIN 7.7 g/dL (6.3-8.2)
[2020-03-10 19:11] LABS: CREATINE KINASE MB < 0.22 ng/mL (<4.55); TROPONIN I < 0.012 ng/mL
--- NOTE | 2020-03-11 06:56 | EKG REPORT ---
SEVERITY:- BORDERLINE ECG - SINUS TACHYCARDIA PROBABLE LEFT ATRIAL ABNORMALITY : Confirmed by: Darrion Parrish MD 11-Mar-2020 06:55:43
== END 2020-03-10 21:20 | disposition left against medical advice (07) ==
LOC: ER 16:34
DX: R07.9 Chest pain, unspecified (principal); R51.9 Headache, unspecified; I10 Essential (primary) hypertension; E78.00 Pure hypercholesterolemia, unspecified; Z90.49 Acquired absence of other specified parts of digestive tract; Z98.51 Tubal ligation status
CPT/HCPCS: 36415; 80053; 82550; 82553; 84484; 85025; 93005; 93010; 99281